=== PATIENT | female | born 1935 | race Caucasian/White ===

== ENCOUNTER 2017-06-17 10:40 | Day surgery (SDC) | payer BC ==
[2017-06-12 11:04] VITALS: BMI 32.0
[2017-06-17] MEDS ORDERED: ONDANSETRON 4 MG/2 ML VIAL ONE (11:36)
[2017-06-17] MEDS ORDERED: DEXAMETHASONE SOD PHOSPHATE 4 MG/1 ML VIAL ONE (11:36)
[2017-06-17] MEDS ORDERED: MIDAZOLAM HCL 2 MG/2 ML SINGLE DOSE VIAL ONE (11:37)
[2017-06-17] MEDS ORDERED: PROPOFOL 20 ML ONE (11:55)
[2017-06-17 12:57] VITALS: PULSE 65
[2017-06-17 13:42] VITALS: BP 110/56; TEMP 96
[2017-06-17] MEDS ORDERED: oxyCODONE HCL 5 MG TABLET PO PRN (13:42)
[2017-06-17] MEDS ORDERED: ACETAMINOPHEN 325 MG TABLET (FP) PO PRN (13:42)
[2017-06-17] MEDS ORDERED: ONDANSETRON 4 MG/2 ML VIAL IVPUSH PRN (13:42)
[2017-06-17] MEDS ORDERED: LACTATED RINGERS SOLUTION 1,000 ML IV SCH (13:45)
--- NOTE | 2017-06-19 08:42 | OP ---
DATE OF OPERATION: 06/17/2017 PREOPERATIVE DIAGNOSIS: Left carpal tunnel syndrome. POSTOPERATIVE DIAGNOSIS: Left carpal tunnel syndrome. OPERATIVE PROCEDURE: Left carpal tunnel release. SURGEON: Damien Booth MD ANESTHESIA: Local with sedation COMPLICATIONS: None. ESTIMATED BLOOD LOSS: Minimal. INDICATIONS FOR PROCEDURE: The patient is an 82-year-old female with the above findings, indicated for operative treatment. The risks, benefits, and alternatives were discussed with the patient at length, and proper informed consent was obtained. PROCEDURE: After proper identification of the patient and the correct operative site, the patient was brought to the operating room and placed supine on the operating table, all prominences were well padded. Sedation was given by the anesthesiologist, local anesthesia was given with 2% lidocaine. Left upper extremity was prepped and draped in the usual sterile fashion. Well-padded tourniquet was placed with a sterile prep. Esmarch bandage to exsanguinate the left upper extremity. Tourniquet was inflated to 250 mmHg. A longitudinal incision was made over the proximal aspect of the palm. Incision was taken sharply through the skin with blunt and sharp dissection through subcutaneous tissues. Palmar fascia was divided longitudinally. The transverse carpal ligament was divided longitudinally along with the distal 4 cm of antebrachial fascia under direct visualization with loupe magnification. This provided complete release of the median nerve at the wrist. Wound was irrigated with saline and repaired with 5-0 nylon suture. Sterile dressings were applied. The patient was reversed from sedation and brought to the recovery room in stable condition. She tolerated the procedure well. Joelle MCDERMOTT/[id number]
== END 2017-06-17 13:43 | disposition home or self-care (01) ==
LOC: FASU 10:40
PROVIDERS: ATTEND Orthopaedic Surgery Hand Surgery
PROC: 01N50ZZ Release Median Nerve, Open Approach (ICD-10-PCS; principal; 2017-06-17 12:09)
DX: G56.02 Carpal tunnel syndrome, left upper limb (principal)

== ENCOUNTER 2017-12-01 06:56 | Day surgery (SDC) | payer BC, OTHER ==
[2017-11-30 15:17] VITALS: BMI 32.9
[2017-12-01] MEDS ORDERED: PROPOFOL 20 ML ONE ×2 (08:16)
[2017-12-01] MEDS ORDERED: LIDOCAINE HCL 2% (20ML MULTI-DOSE VIAL) NR ONE (08:16)
[2017-12-01 09:11] VITALS: TEMP 98.1
--- NOTE | 2017-12-01 09:14 | PROC ---
Endoscopy Procedure Endoscopy procedure completed. Please see scanned procedure report.
[2017-12-01 09:51] VITALS: BP 121/51; PULSE 68
--- NOTE | 2017-12-02 13:05 | PATH ---
Surgical Pathology Report Patient Name: MARIE ROBLES [facility]. Rec. #: [id number] /Age/Gender: 1935 (Age: 82) / F Account: [id number] Location: U-ENDOSCOPY Taken: 12/01/2017 Received: 12/01/2017 Reported: 12/02/2017 Physicians: Otto Carmona M.D. Specimen(s) Received A: BX DUODENUM SECOND PORTION B: BX ANTRUM AND BODY C: RECTAL POLYP BIOPSY Clinical History Preoperative diagnosis: Anemia Postoperative diagnosis: Esophagitis, mild gastritis, rectal polyp, diverticulosis Final Diagnosis A. DUODENUM, SECOND PORTION, BIOPSY: DUODENAL MUCOSA WITH NO PATHOLOGIC CHANGES. NO HISTOLOGIC EVIDENCE OF GLUTEN SENSITIVE ENTEROPATHY (CELIAC SPRUE) IDENTIFIED. B. STOMACH, ANTRUM/BODY, BIOPSY: GASTRIC FUNDIC MUCOSA WITH FOCAL MILD CHRONIC GASTRITIS. IMMUNOSTAIN FOR H. PYLORI IS NEGATIVE. C. COLON, RECTUM, BIOPSY: HYPERPLASTIC POLYP. Electronically Signed Myke Henderson M.D. Gross Description A. Received in formalin, labeled "biopsy second portion of duodenum" are 2 monique, irregular portions of soft tissue measuring 0.1 and 0.2 cm. in greatest dimension. The specimens are submitted in toto in one cassette. B. Received in formalin, labeled "biopsy antrum/body" are 3 monique, irregular portions of soft tissue ranging from 0.1-0.3 cm. in greatest dimension. The specimens are submitted in toto in one cassette. C. Received in formalin, labeled "biopsy rectal polyp" is a monique, irregular portion of soft tissue measuring 0.3 cm. in greatest dimension. The specimen is submitted in toto in one cassette. 12/01/2017 [facility]12/01/2017
== END 2017-12-01 09:53 | disposition home or self-care (01) ==
LOC: JASU-ENDO 06:56
PROVIDERS: ATTEND Internal Medicine Gastroenterology
PROC: 0DB98ZX Excision of Duodenum, Via Natural or Artificial Opening Endoscopic, Diagnostic (ICD-10-PCS; 2017-12-01)
PROC: 0DB68ZX Excision of Stomach, Via Natural or Artificial Opening Endoscopic, Diagnostic (ICD-10-PCS; 2017-12-01)
PROC: 0DBP8ZX Excision of Rectum, Via Natural or Artificial Opening Endoscopic, Diagnostic (ICD-10-PCS; principal; 2017-12-01 08:00)
DX: Z12.11 Encounter for screening for malignant neoplasm of colon (principal); D64.9 Anemia, unspecified; K57.30 Diverticulosis of large intestine without perforation or abscess without bleeding
CPT/HCPCS: 82962; 88305-TC; 88342-TC

== ENCOUNTER 2018-12-14 07:59 | Day surgery (SDC) | payer BC, OTHER ==
[2018-12-03 10:22] VITALS: BMI 34.2
[2018-12-14] MEDS ORDERED: ACETAMINOPHEN 325 MG TABLET (FP) PO ONE (12:30)
[2018-12-14] MEDS ORDERED: ACETAMINOPHEN 325 MG TABLET (FP) ONE (12:31)
[2018-12-14 15:07] VITALS: BP 138/65; PULSE 80; TEMP 98
--- NOTE | 2018-12-16 14:25 | PATH ---
Surgical Pathology Report Patient Name: MARIE ROBLES [facility]. Rec. #: [id number] /Age/Gender: 1935 (Age: 83) / F Account: [id number] Location: RADIOLOGY INTER Taken: 12/14/2018 Received: 12/14/2018 Reported: 12/16/2018 Physicians: Joelle Mcmahon M.D. Specimen(s) Received LUNG, LEFT Clinical History 83-year-old female with large left upper lobe mass and left adrenal gland mass Final Diagnosis Lung, left, CT guided core biopsy: Adenocarcinoma, acinar and micropapillary patterns. SEE Comment. Comment: Immunohistochemical stains performed and interpreted at [facility] show the tumor is positive for AE1/3, CK7 and TTF-1, focally positive for p63, while negative for CK20. Additional immunohistochemical stains performed at [place], [place] ([id number]) and interpreted at [facility] show the tumor is positive for Napsin A, while rare cells are positive for p40. Overall histomorphology and immunophenotype is consistent with primary lung origin. History of large lung mass and left adrenal gland mass are noted. Findings relayed to Kathy from Dr. Calles's office. Electronically Signed Ivonne Rodriguez M.D. Gross Description Received in formalin labeled "left lung," is a 0.7 x 0.5 x 0.1 cm aggregate of monique soft tissue fragments. The formalin is filtered and the specimen is entirely submitted in one cassette. /12/14/201812/14/2018
== END 2018-12-14 15:14 | disposition home or self-care (01) ==
LOC: JRADIR 07:59
PROVIDERS: ATTEND Internal Medicine
PROC: 0BBG3ZX Excision of Left Upper Lung Lobe, Percutaneous Approach, Diagnostic (ICD-10-PCS; principal; 2018-12-14)
DX: C34.12 Malignant neoplasm of upper lobe, left bronchus or lung (principal)
CPT/HCPCS: 32405; 71046-TC-FY; 77012-TC; 88305-TC; 88341-TC; 88342-TC

== ENCOUNTER 2019-01-27 09:49 | Day surgery (SDC) | payer BC, OTHER ==
[2019-01-26 11:20] VITALS: BMI 34.2
[2019-01-27 10:37] LABS: BASO % 0.6 % (0-2.0); EOS % 2.4 % (0-4.5); HEMATOCRIT 34.6 % (32.4-45.2); HEMOGLOBIN 11.3 GM/dL (10.7-15.3); LYMPH % 20.1 % (8-40); MCH 26.9 pg (25.7-33.7); MCHC 32.5 g/dl (32.0-36.0); MEAN CELL VOLUME 82.8 fl (80-96); MEAN PLT VOLUME 7.9 fl (7.5-11.1); MONO % 4.8 % (3.8-10.2); NEUT % 72.1 % (42.8-82.8); PLATELET COUNT 387 K/MM3 (134-434); RBC 4.18 M/mm3 (3.60-5.2); RDW 14.1 % (11.6-15.6); WHITE BLOOD COUNT 11.7 K/mm3 (4.0-10.0)
[2019-01-27 11:34] LABS: INR 1.08 (0.83-1.09); PROTHROMBIN TIME (PATIENT) 12.7 SEC (9.7-13.0)
[2019-01-27 14:03] VITALS: TEMP 98
[2019-01-27 15:13] VITALS: BP 118/53; PULSE 78
--- NOTE | 2019-01-28 15:11 | PATH ---
Surgical Pathology Report Patient Name: MARIE ROBLES [facility]. Rec. #: [id number] /Age/Gender: 1935 (Age: 83) / F Account: [id number] Location: RADIOLOGY INTER Taken: 01/27/2019 Received: 01/27/2019 Reported: 01/28/2019 Physicians: Jim Reynoso M.D. Kalia Verdugo M.D. Specimen(s) Received ADRENAL BIOPSY CORE Clinical History 83-year-old female with lung cancer and left adrenal enlargement, rule out metastatic disease Final Diagnosis LEFT ADRENAL GLAND, NEEDLE CORE BIOPSY: METASTATIC PULMONARY ADENOCARCINOMA. Comment: Immunohistochemical stains performed and interpreted at [facility] show the following results: The neoplastic cells stain with CK7 and TTF-1, with rare cells staining with CK20. See also prior biopsy [id number]. This case was discussed with Dr. Verdugo on January 28, 2019. Electronically Signed Myke Henderson M.D. Gross Description Received in formalin labeled "left adrenal biopsy," are 3 monique, cylindrical portions of soft tissue ranging from 0.3-0.9 cm in length and averaging 0.1 cm in diameter. The specimens are submitted in toto in one cassette. /01/27/201901/27/2019
== END 2019-01-27 14:55 | disposition home or self-care (01) ==
LOC: JRADIR 09:49
PROVIDERS: ATTEND Internal Medicine Hematology & Oncology
PROC: 0GB23ZX Excision of Left Adrenal Gland, Percutaneous Approach, Diagnostic (ICD-10-PCS; principal; 2019-01-27)
DX: C79.72 Secondary malignant neoplasm of left adrenal gland (principal); C34.90 Malignant neoplasm of unspecified part of unspecified bronchus or lung
CPT/HCPCS: 36415; 49180; 82962; 85025; 85610; 87899; 88305-TC; 88341-TC; 88342-TC

== ENCOUNTER 2020-06-12 05:34 | Day surgery (SDC) | payer BC, OTHER ==
[2020-06-08 14:55] VITALS: BMI 31.2
[2020-06-12 08:09] LABS: BASO % 0.9 % (0-2.0); EOS % 5.1 % (0-4.5); HEMATOCRIT 34.1 % (32.4-45.2); HEMOGLOBIN 10.9 GM/dL (10.7-15.3); MCH 27.7 pg (25.7-33.7); MCHC 31.9 g/dl (32.0-36.0); MEAN CELL VOLUME 86.9 fl (80-96); MEAN PLT VOLUME 7.6 fl (7.5-11.1); MONO % 7.2 % (3.8-10.2); NEUT % 62.8 % (42.8-82.8); PLATELET COUNT 349 K/MM3 (134-434); RBC 3.93 M/mm3 (3.60-5.2); RDW 14.1 % (11.6-15.6); WHITE BLOOD COUNT 8.8 K/mm3 (4.0-10.0)
[2020-06-12 08:24] LABS: INR 1.06 (0.83-1.09); PROTHROMBIN TIME (PATIENT) 12.5 SEC (9.7-13.0)
[2020-06-12] MEDS ORDERED: ACETAMINOPHEN 325 MG TABLET (FP) ONE (11:50)
[2020-06-12] MEDS ORDERED: ACETAMINOPHEN 325 MG TABLET (FP) PO ONE (11:50)
[2020-06-12 13:15] VITALS: BP 126/64; PULSE 68; TEMP 97
--- NOTE | 2020-06-14 14:42 | PATH ---
Surgical Pathology Report Patient Name: MARIE ROBLES [facility]. Rec. #: [id number] /Age/Gender: 1935 (Age: 85) / F Account: [id number] Location: RADIOLOGY INTER Taken: 06/12/2020 Received: 06/12/2020 Reported: 06/14/2020 Physicians: Joelle Mcmahon M.D. Specimen(s) Received LEFT UPPER LOBE LUNG BIOPSY Clinical History 85 year old female with history lung cancer and adrenal mets now with left upper lobe mass Final Diagnosis LUNG, LEFT, UPPER LOBE, CT GUIDED CORE BIOPSY: ADENOCARCINOMA, MODERATELY DIFFERENTIATED. SEE COMMENT. Comment: Histologic sections show lepidic and acinar patterns. Immunohistochemical stains performed and interpreted at [facility] show the tumor is positive for AE1/3, CK7, and TTF-1. [facility] [place] [place] ([id number]) and interpreted at [facility] show the tumor is positive for Napsin-A, while p40 shows rare isolated positive staining. Overall, findings are consistent with an adenocarcinoma of lung origin. Case discussed with Dr. Verdugo, 06/13/20. Prior materials are noted. Molecular studies (Omniseq) pending, findings will be reported separately. Positive and negative controls (internal if applicable) show appropriate results. Electronically Signed Ivonne Rodriguez M.D. Gross Description Received in formalin labeled "left lung biopsy," are 6 monique, cylindrical portions of soft tissue ranging from 0.3-0.8 cm in length and averaging 0.1 cm in diameter. The specimens are submitted in toto in one cassette. /06/12/2020 saudi06/12/2020
== END 2020-06-12 14:35 | disposition home or self-care (01) ==
LOC: JRADIR 05:34
PROVIDERS: ATTEND Internal Medicine Hematology & Oncology
PROC: 0BBG3ZX Excision of Left Upper Lung Lobe, Percutaneous Approach, Diagnostic (ICD-10-PCS; principal; 2020-06-12)
DX: C34.12 Malignant neoplasm of upper lobe, left bronchus or lung (principal); C79.70 Secondary malignant neoplasm of unspecified adrenal gland
CPT/HCPCS: 32405; 36415; 71045-TC-FY; 77012-TC; 85025; 85610; 88305-TC; 88341-TC; 88342-TC

== ENCOUNTER 2020-06-14 10:29 | Inpatient (IN) | payer BC, OTHER ==
--- NOTE | 2020-06-14 11:44 | PDOC ---
History of Present Illness - General Chief Complaint: Shortness of Breath Stated Complaint: CHEST TUBE Time Seen by Provider: 06/14/20 11:34 - History of Present Illness Initial Comments: Margo Edwards is an 85yo woman with a PMH of lung CA (sees Dr Verdugo, on chemo) HTN, HLD, DM2, hypothyroidism, Bipolar I, GERD who presents with a known left- sided pneumothorax. She had a biopsy of the lung cancer on 06/12/20 with a small apical pneumothorax noted on xray following the biopsy. Today, she came in for a follow up xray; the pneumo was noted to have increased in size. Her doctor arranged for her to have a pigtail placed with IR today and told her to come to the ED for admission. Ms Edwards reports some mild shortness of breath but otherwise has no complaints today. Past History - Medical History Allergies/Adverse Reactions: Allergies Allergy/AdvReac Type Severity Reaction Status Date / Time No Known Allergies Allergy Verified 06/14/20 10:37 Home Medications: Ambulatory Orders Alprazolam [Xanax] 0.5 mg PO DAILY PRN 06/12/17 Aripiprazole 7 mg PO DAILY 06/12/17 Glipizide/Metformin HCl [Glipizide-Metformin 5-500 mg] 1 each PO BID 06/12/17 Irbesartan 75 mg PO DAILY 06/12/17 Lamotrigine [Lamictal] 100 mg PO DAILY 06/12/17 Levothyroxine [Synthroid -] 50 mcg PO DAILY 06/12/17 Sertraline HCl [Zoloft] 100 mg PO DAILY 06/12/17 Simvastatin 20 mg PO HS 06/12/17 Insulin Glargine,Hum.rec.anlog [Lantus] 28 unit SQ DAILY 11/30/17 Insulin Lispro [Humalog Nicholas Kwikpen] 100 unit SQ PRN 11/30/17 Liraglutide [Victoza -] 1.2 mg SQ DAILY@0700 11/30/17 Famotidine [Pepcid] 40 mg PO DAILY 06/08/20 ERLOTINIB HCl [Tarceva (Nf) -] 25 mg PO DAILY 06/14/20 Potassium Chloride 10 meq PO DAILY 06/14/20 Anemia: Yes Asthma: No Cancer: Yes (LEFT LUNG) Cardiac Disorders: No CVA: No COPD: No CHF: No Dementia: No Diabetes: Yes (OVER 15 YEARS) GI Disorders: Yes (GERD) Disorders: No HTN: Yes Hypercholesterolemia: Yes Liver Disease: No Seizures: No Thyroid Disease: Yes (HYPOTHYROIDISM) - Surgical History Abdominal Surgery: No Appendectomy: No Cardiac Surgery: No Cholecystectomy: No Lung Surgery: No Neurologic Surgery: No Orthopedic Surgery: Yes (RIGHT AND LEFT TKR, LAST OVER 10 YEARS AGO) - Reproductive History Is Patient Now?: No - Psycho-Social/Smoking History Smoking History: Never smoked Have you smoked in the past 12 months: No If you are a former smoker, when did you quit?: OVER 25 YEARS AGO Information on smoking cessation initiated: No - Substance Abuse Hx (Audit-C & DAST Scrn) How often the patient has a drink containing alcohol: Never Score: In Men: 4 or > Positive; In Women: 3 or > Positive: 0 Screen Result (Pos requires Nsg. Audit-10AR): Negative In the last yr the pt used illegal drug/Rx for NonMed reason: No Score: Yes response is considered Positive: 0 Screen Result (Positive result requires Nsg. DAST-10): Negative Review of Systems - Review of Systems Comments:: General: No fevers, no chills, no weight or appetite change, no malaise HEENT: No changes in vision, no changes in hearing, no congestion, no sore throat CV: No chest pain, no palpitations, no LE edema Pulm: See HPI GI: No nausea or vomiting, no change in bowel habits, no melena : No frequency, no urgency, no dysuria Musc: No back pain, no joint swelling, no recent injury Skin: No rash, no lesions, no erythema Endo: No excessive thirst, no heat/cold intolerance Heme: No unusual bruising or bleeding, no swollen glands Neuro: No syncope, no numbness/tingling, no focal weakness Vasc: No claudication Psych: No recent change in mood, no SI or HI *Physical Exam - Vital Signs Last Vital Signs Temp Pulse Resp BP Pulse Ox 98.6 F 65 19 141/49 L 99 06/14/20 10:32 06/14/20 10:32 06/14/20 10:32 06/14/20 10:32 06/14/20 10:32 - Physical Exam General: Comfortable, no acute distress HEENT: Atraumatic, PERRL, EOMI, MMM, voice normal, hard of hearing, normal neck ROM Cards: RRR, no murmur appreciated Pulm: Comfortable on O2 by NC. Diminished breath sounds in left apical lung Abd: Soft, nontender, nondistended Ext: Atraumatic. No LE edema. ROM intact. WWP Skin: Normal color, no rashes or lesions Neuro: A&Ox3, CN grossly intact, normal speech, motor/sensory grossly intact and symmetric Psych: Mood appropriate to situation ED Treatment Course - LABORATORY CBC & Chemistry Diagram: 06/14/20 12:15 06/14/20 12:15 Medical Decision Making - Medical Decision Making 06/14/20 11:44 Margo Edwards is an 85yo woman with a PMH of lung CA (sees Dr Verdugo, on chemo) HTN, HLD, DM2, hypothyroidism, Bipolar I, GERD who presents with an enlarging left apical pneumothorax after a lung biopsy on 06/12/20. She was told to present to the ED for admission to the hospital for planned intervention with IR today. - CXR completed this morning, enlarging left apical pneumothorax noted - CBC, CMP, EKG for admission - Dr Guzman aware - Call to PMD, Dr Calles, for admission 06/14/20 13:11 - Labs without concerning abnormalities - EKG with NSR, HR 63, normal interval, no t-wave or ST changes - Spoke to Dr Verdugo; pt may take home chemo daily while at the hospital - Return call to Dr Calles for admission now that labs are available - Per pt's family and Dr Guzman, will be going to IR for CT placement this afternoon 06/14/20 13:38 - Sign out given to Dr Calles; spoke to Dr Pollard. Will admit for further management. Discussed with Dr Atul Ram PGY3 Discharge - Discharge Information Problems reviewed: Yes Clinical Impression/Diagnosis: Pneumothorax after biopsy Condition: Fair - Admission Yes - Follow up/Referral Referrals: Lena Calles MD [Primary Care Provider] - - Patient Discharge Instructions - Post Discharge Activity
[2020-06-14 12:30] LABS: BASO % 0.8 % (0-2.0); EOS % 4.7 % (0-4.5); HEMATOCRIT 33.1 % (32.4-45.2); HEMOGLOBIN 10.8 GM/dL (10.7-15.3); LYMPH % 26.7 % (8-40); MCH 28.1 pg (25.7-33.7); MCHC 32.5 g/dl (32.0-36.0); MEAN CELL VOLUME 86.5 fl (80-96); MEAN PLT VOLUME 7.8 fl (7.5-11.1); MONO % 6.3 % (3.8-10.2); NEUT % 61.5 % (42.8-82.8); PLATELET COUNT 325 K/MM3 (134-434); RBC 3.82 M/mm3 (3.60-5.2); RDW 14.2 % (11.6-15.6); WHITE BLOOD COUNT 9.1 K/mm3 (4.0-10.0)
[2020-06-14 12:56] LABS: ALBUMIN 3.5 g/dl (3.4-5.0); BILIRUBIN,TOTAL 0.3 mg/dL (0.2-1); BLOOD UREA NITROGEN 24.4 mg/dL (7-18); CALCIUM 9.6 mg/dL (8.5-10.1); CREATININE 1.1 mg/dL (0.55-1.3); TOT PROT 7.4 g/dl (6.4-8.2)
--- NOTE | 2020-06-14 14:36 | PDOC ---
Documentation entered by Redd Tran SCRIBE, acting as scribe for Ailyn Pollard MD. Ailyn Pollard MD: This documentation has been prepared by the Chelsea vaz Xhesika, SCRIBE, under my direction and personally reviewed by me in its entirety. I confirm that the documentation accurately reflects all work, treatment, procedures, and medical decision making performed by me. Attending Attestation - Resident Resident Name: Che Ram - ED Attending Attestation I have performed the following: I have examined & evaluated the patient, The case was reviewed & discussed with the resident, I agree w/resident's findings & plan, Exceptions are as noted - HPI HPI: 06/14/20 11:39 The patient is a 85y/o F with a pmh of lung CA (sees Dr Verdugo, on chemo) HTN, HLD, DM2, hypothyroidism, Bipolar I, GERD who presents to the ED sent by Dr. Begum for admission for L sided pneumothorax on CXR. Pt states she had a biopsy of the lung (06/12/20) with a small apical pneumothorax noted on xray following the biopsy. Pt is currently complaining for SOB. Allergies: NKDA PCP: Lena Gibson Hem/Onc: Dr. Verdugo - Physicial Exam PE: 06/14/20 12:08 General: well appearing Chest: decreased BS on L compared to R, normal rr, speaking in full sentences, no accessory muscle use CVS: + s1 s2, RRR - Medical Decision Making 06/14/20 12:09 85 yo F with PTX s/p lung biopsy, xray from today expanding PTX, no resp distress. Plan: -labs -supplemental O2 -IR consulted for chest tube placement (biopsy performed by IR) -admit This clinical encounter is taking place during a federal and state health care emergency attributable to the novel [place] Virus pandemic. The [place] Administrator of the Department of Health and Human Services has declared, pursuant to the Public Health Service Act 319F-3 (42 U.S.C. 247d-6d), that a covered persons activities related to medical countermeasures against COVID-19 will be immune from liability under Federal and State law. Heart Score/ECG Review - ECG Impressions Comment:: 06/14/20 12:11 sinus, rate 63, no ST elevations Discharge - Discharge Information Problems reviewed: Yes Clinical Impression/Diagnosis: Pneumothorax after biopsy Condition: Fair - Follow up/Referral - Patient Discharge Instructions - Post Discharge Activity
--- NOTE | 2020-06-14 16:34 | CON.PULM ---
Consult Consult Specialty:: PULM/CCM Referred by:: ER Reason for Consultation:: PTX - History of Present Illness Chief Complaint: PTX History of Present Illness: 85 F, known Left lung Adenocarcinoma (acinar & micropapillary), HTN, HLD, DM, hypothyroidism, Bipolar I, and GERD. S/P CT guided Left lung mass biopsy on 06/12/2020. Developed a small Left Apical PTX. Admitted via the ER due to enlarging left PTX on follow up CXR. Patient had a left pleural catheter inserted by IR with significant improvement in the PTX. CXR: Significant improvement in Left PTX / LLL atelectasis / minimal effusion Intake & Output 06/11/20 06/12/20 06/13/20 06/14/20 23:59 23:59 23:59 23:59 Weight 175 lb Last Vital Signs Temp Pulse Resp BP Pulse Ox 98.6 F 67 18 137/64 100 06/14/20 10:32 06/14/20 14:18 06/14/20 14:18 06/14/20 14:18 06/14/20 14:18 Active Medications Non-Formulary Medication (Erlotinib Hcl) 25 mg PO TID RAGINI General: Awake and alert, NAD HEENT: (-) Pallor Cards: RRR, no murmur appreciated Pulm: Comfortable on O2 by NC. Diminished breath sounds in left apical lung Abd: Soft, nontender, nondistended Ext: Atraumatic. No LE edema. ROM intact. WWP Skin: Normal color, no rashes or lesions Neuro: Non-focal Laboratory Results - last 24 hr 06/14/20 06/14/20 12:15 12:15 WBC 9.1 RBC 3.82 Hgb 10.8 Hct 33.1 MCV 86.5 MCH 28.1 MCHC 32.5 RDW 14.2 Plt Count 325 MPV 7.8 Absolute Neuts (auto) 5.6 Neutrophils % 61.5 Lymphocytes % 26.7 Monocytes % 6.3 Eosinophils % 4.7 H Basophils % 0.8 Nucleated RBC % 0 Sodium 137 Potassium 5.0 Chloride 105 Carbon Dioxide 27 Anion Gap 5 L BUN 24.4 H Creatinine 1.1 Est GFR (CKD-EPI)AfAm 52.65 Est GFR (CKD-EPI)NonAf 45.42 Random Glucose 167 H Calcium 9.6 Total Bilirubin 0.3 AST 14 L ALT 22 Alkaline Phosphatase 108 Total Protein 7.4 Albumin 3.5 IMP: PTX S/P CT guided biopsy S/P left pleural catheter insertion with significant improvement in left PTX Left lung Adenocarcinoma (acinar & micropapillary) HTN HLD DM Hypothyroidism Bipolar I GERD Pleural catheter to suction Supplemental O2 as needed Follow CXR Incentive Spirometry VTE prophylaxis Will follow Thank you. Dr Guzman - History Source History Provided By: Patient, Family Member Limitations to Obtaining History: No Limitations - Past Medical History Pulmonary: Yes: Bronchitis, Cancer, Pneumonia ...: No - Alcohol/Substance Use Hx Alcohol Use: No - Smoking History Smoking history: Never smoked Have you smoked in the past 12 months: No If you are a former smoker, when did you quit?: OVER 25 YEARS AGO Home Medications - Allergies Allergies/Adverse Reactions: Allergies Allergy/AdvReac Type Severity Reaction Status Date / Time No Known Allergies Allergy Verified 06/14/20 10:37 - Home Medications Home Medications: Ambulatory Orders Alprazolam [Xanax] 0.5 mg PO DAILY PRN 06/12/17 Aripiprazole 7 mg PO DAILY 06/12/17 Glipizide/Metformin HCl [Glipizide-Metformin 5-500 mg] 1 each PO BID 06/12/17 Irbesartan 75 mg PO DAILY 06/12/17 Lamotrigine [Lamictal] 100 mg PO DAILY 06/12/17 Levothyroxine [Synthroid -] 50 mcg PO DAILY 06/12/17 Sertraline HCl [Zoloft] 100 mg PO DAILY 06/12/17 Simvastatin 20 mg PO HS 06/12/17 Insulin Glargine,Hum.rec.anlog [Lantus] 28 unit SQ DAILY 11/30/17 Insulin Lispro [Humalog Nicholas Kwikpen] 100 unit SQ PRN 11/30/17 Liraglutide [Victoza -] 1.2 mg SQ DAILY@0700 11/30/17 Famotidine [Pepcid] 40 mg PO DAILY 06/08/20 ERLOTINIB HCl [Tarceva (Nf) -] 25 mg PO DAILY 06/14/20 Potassium Chloride 10 meq PO DAILY 06/14/20 Physical Exam Vital Sings: Vital Signs Temperature 98.6 F 06/14/20 10:32 Pulse Rate 67 06/14/20 14:18 Respiratory Rate 18 06/14/20 14:18 Blood Pressure 137/64 06/14/20 14:18 O2 Sat by Pulse Oximetry (%) 100 06/14/20 14:18 Labs: CBC, BMP 06/14/20 12:15 06/14/20 12:15
--- NOTE | 2020-06-14 16:45 | EKG ---
Test Reason : Blood Pressure : / mmHG Vent. Rate : 063 BPM Atrial Rate : 063 BPM P-R Int : 208 ms QRS Dur : 072 ms QT Int : 422 ms P-R-T Axes : 052 006 050 degrees QTc Int : 431 ms NORMAL SINUS RHYTHM POSSIBLE ANTEROSEPTAL INFARCT , AGE UNDETERMINED ABNORMAL ECG NO PREVIOUS ECGS AVAILABLE Confirmed by ESPINOZA DOBBINS MD ([id number]) on 06/14/2020 4:44:26 PM Referred By: Confirmed By:ESPINOZA DOBBINS MD
[2020-06-14 16:48] VITALS: BMI 34.4
--- NOTE | 2020-06-14 17:53 | CON.HO ---
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 There was concern for progression of disease therefore patient was scheduled for lung biopsy on 06/12. She was referred to ER when follow up CXR found enlarging left lung PTX. Received a L pleural catheter with IR today. Oncology consulted as patient is known to our service. - Past Medical History Pulmonary: Yes: Bronchitis, Cancer, Pneumonia ...: No - Alcohol/Substance Use Hx Alcohol Use: No - Smoking History Smoking history: Never smoked Have you smoked in the past 12 months: No If you are a former smoker, when did you quit?: OVER 25 YEARS AGO Home Medications - Allergies Allergies/Adverse Reactions: Allergies Allergy/AdvReac Type Severity Reaction Status Date / Time No Known Allergies Allergy Verified 06/14/20 10:37 - Home Medications Home Medications: Ambulatory Orders Alprazolam [Xanax] 0.5 mg PO DAILY PRN 06/12/17 Aripiprazole 7 mg PO DAILY 06/12/17 Glipizide/Metformin HCl [Glipizide-Metformin 5-500 mg] 1 each PO BID 06/12/17 Irbesartan 75 mg PO DAILY 06/12/17 Lamotrigine [Lamictal] 100 mg PO DAILY 06/12/17 Levothyroxine [Synthroid -] 50 mcg PO DAILY 06/12/17 Sertraline HCl [Zoloft] 100 mg PO DAILY 06/12/17 Simvastatin 20 mg PO HS 06/12/17 Insulin Glargine,Hum.rec.anlog [Lantus] 28 unit SQ DAILY 11/30/17 Insulin Lispro [Humalog Nicholas Kwikpen] 100 unit SQ PRN 11/30/17 Liraglutide [Victoza -] 1.2 mg SQ DAILY@0700 11/30/17 Famotidine [Pepcid] 40 mg PO DAILY 06/08/20 ERLOTINIB HCl [Tarceva (Nf) -] 25 mg PO TID 06/14/20 Potassium Chloride 10 meq PO DAILY 06/14/20 Review of Systems - Review of Systems Constitutional: reports: No Symptoms Eyes: reports: No Symptoms HENT: reports: No Symptoms Neck: reports: No Symptoms Cardiovascular: reports: No Symptoms, Chest Pain Respiratory: reports: No Symptoms, SOB Gastrointestinal: reports: No Symptoms Genitourinary: reports: No Symptoms Musculoskeletal: reports: No Symptoms Integumentary: reports: No Symptoms Neurological: reports: No Symptoms Physical Exam Vital Signs: Vital Signs Temperature 97.8 F 06/14/20 16:41 Pulse Rate 60 06/14/20 16:41 Respiratory Rate 20 06/14/20 16:41 Blood Pressure 134/54 L 06/14/20 16:41 O2 Sat by Pulse Oximetry (%) 100 06/14/20 16:52 Constitutional: Yes: No Distress, Calm Eyes: Yes: WNL, Conjunctiva Clear HENT: Yes: Atraumatic, Normocephalic Neck: Yes: Supple Cardiovascular: Yes: Regular Rate and Rhythm Respiratory: Yes: Other (left chest tube in place) Gastrointestinal: Yes: WNL Musculoskeletal: Yes: WNL Extremities: Yes: WNL Labs: CBC, BMP 06/14/20 12:15 06/14/20 12:15 Assessment/Plan 85y F with EGFR mutated metastatic Lung adeno (to adrenals) presents after scheduled lung biopsy c/b PTX requiring left pleural catheter placement with IR -recommend continuing oral chemo Erlotinib while in house (patient has her own medication with her) -close oncology follow up with Dr Verdugo on d/c
[2020-06-14] MEDS ORDERED: ARIPiprazole 2 MG TABLET PO SCH (18:15)
--- NOTE | 2020-06-14 18:31 | HP ---
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: Yes: Dementia Cardiovascular: Yes: HTN Pulmonary: Yes: Bronchitis, Cancer, Pneumonia ...: No Heme/Onc: Yes: Current Chemotherapy Endocrine: Yes: Diabetes Mellitus, Hypothyroidism - Smoking History Smoking history: Never smoked Have you smoked in the past 12 months: No If you are a former smoker, when did you quit?: OVER 25 YEARS AGO - Alcohol/Substance Use Hx Alcohol Use: No Home Medications - Allergies Allergies/Adverse Reactions: Allergies Allergy/AdvReac Type Severity Reaction Status Date / Time No Known Allergies Allergy Verified 06/14/20 10:37 - Home Medications Home Medications: Ambulatory Orders Alprazolam [Xanax] 0.5 mg PO DAILY PRN 06/12/17 Aripiprazole 7 mg PO DAILY 06/12/17 Glipizide/Metformin HCl [Glipizide-Metformin 5-500 mg] 1 each PO BID 06/12/17 Irbesartan 75 mg PO DAILY 06/12/17 Lamotrigine [Lamictal] 100 mg PO DAILY 06/12/17 Levothyroxine [Synthroid -] 50 mcg PO DAILY 06/12/17 Sertraline HCl [Zoloft] 100 mg PO DAILY 06/12/17 Simvastatin 20 mg PO HS 06/12/17 Insulin Glargine,Hum.rec.anlog [Lantus] 28 unit SQ DAILY 11/30/17 Insulin Lispro [Humalog Nicholas Kwikpen] 100 unit SQ PRN 11/30/17 Liraglutide [Victoza -] 1.2 mg SQ DAILY@0700 11/30/17 Famotidine [Pepcid] 40 mg PO DAILY 06/08/20 ERLOTINIB HCl [Tarceva (Nf) -] 25 mg PO TID 06/14/20 Potassium Chloride 10 meq PO DAILY 06/14/20 Review of Systems - Review of Systems Constitutional: reports: No Symptoms Eyes: reports: No Symptoms HENT: reports: No Symptoms Respiratory: denies: Cough Gastrointestinal: reports: Bloating, Other (loose stools). denies: Constipation, Dysphagia, Melena, Rectal Bleeding, Vomiting Blood Genitourinary: reports: Incontinence Breasts: reports: No Symptoms Reported Musculoskeletal: reports: No Symptoms Integumentary: reports: No Symptoms Neurological: reports: No Symptoms Endocrine: reports: No Symptoms Physical Examination Vital Signs: Vital Signs Temperature 97.8 F 06/14/20 16:41 Pulse Rate 60 06/14/20 16:41 Respiratory Rate 06/14/20 16:41 Blood Pressure 134/54 L 06/14/20 16:41 O2 Sat by Pulse Oximetry (%) 100 06/14/20 16:52 Labs: CBC, BMP 06/14/20 12:15 06/14/20 12:15 Problem List - Problems (1) Pneumothorax after biopsy Assessment/Plan: pig tail catheter in place for drainage, monitore serous liquid Code(s): J95.811 - POSTPROCEDURAL PNEUMOTHORAX (2) Lung cancer Assessment/Plan: continue Erlitinib Code(s): C34.90 - MALIGNANT NEOPLASM OF UNSP PART OF UNSP BRONCHUS OR LUNG (3) Diabetes mellitus type 2 in nonobese Assessment/Plan: continue Vctoza and LEvelir hold for now Glipizide and Glucophage Code(s): E11.9 - TYPE 2 DIABETES MELLITUS WITHOUT COMPLICATIONS
[2020-06-14] MEDS: lamoTRIgine 100 MG TABLET PO SCH (18:38)
[2020-06-14] MEDS: POTASSIUM CHLORIDE TABS 10 MEQ TABLET.ER (FP) PO SCH (18:38)
[2020-06-14] MEDS: SERTRALINE HCL 50 MG TABLET (FP) PO SCH (18:38)
[2020-06-14] MEDS: LOSARTAN POTASSIUM 25 MG TABLET PO SCH (18:38)
[2020-06-14] MEDS ORDERED: PT OWN MED DRAWER 7, Y5N ONE ×3 (20:56→23:56)
[2020-06-14] MEDS: ARIPIPRAZOLE 5 MG, ARIPIPRAZOLE 2 MG PO SCH (21:55)
[2020-06-14] MEDS: ATORVASTATIN CA 10 MG TABLET (FP) PO SCH (21:56)
[2020-06-14] MEDS ORDERED: FAMOTIDINE 10 MG TABLET PO ONE (22:01)
[2020-06-14] MEDS: ERLOTINIB HCL PO SCH (22:02)
[2020-06-14] MEDS: INSULIN (LEVEMIR) 100 UNITS/ML UNITS SQ SCH (22:03)
[2020-06-14] MEDS: INSULIN SLIDING SCALE (NOVOLOG) 1 VIAL SQ SCH (22:18)
[2020-06-15] MEDS: ACETAMINOPHEN 500 MG TABLET (FP) PO PRN ×2 (02:43→21:41)
[2020-06-15] MEDS ORDERED: INSULIN (NOVOLOG) ASPART 100 UNITS/ML 10ML VIAL ONE (06:37)
[2020-06-15] MEDS: ERLOTINIB HCL PO SCH ×3 (06:39→21:40)
[2020-06-15] MEDS: INSULIN SLIDING SCALE (NOVOLOG) 1 VIAL SQ SCH ×4 (06:39→21:43)
[2020-06-15] MEDS: LEVOTHYROXINE NA 50 MCG TABLET (FP) PO SCH (06:40)
[2020-06-15] MEDS ORDERED: PT OWN MED DRAWER 7, Y5N ONE ×5 (06:43→14:21)
[2020-06-15] MEDS: LIRAGLUTIDE 0.6 MG/0.1 ML PEN.INJCTR SQ SCH (06:44)
[2020-06-15] MEDS ORDERED: LIRAGLUTIDE 0.6 MG/0.1 ML PEN.INJCTR SQ SCH (07:00)
[2020-06-15 08:11] LABS: BASO % 0.9 % (0-2.0); EOS % 3.8 % (0-4.5); HEMATOCRIT 32.4 % (32.4-45.2); HEMOGLOBIN 10.4 GM/dL (10.7-15.3); LYMPH % 30.2 % (8-40); MCH 28.3 pg (25.7-33.7); MCHC 32.2 g/dl (32.0-36.0); MEAN CELL VOLUME 87.9 fl (80-96); MEAN PLT VOLUME 8.2 fl (7.5-11.1); MONO % 6.3 % (3.8-10.2); NEUT % 58.8 % (42.8-82.8); PLATELET COUNT 327 K/MM3 (134-434); RBC 3.68 M/mm3 (3.60-5.2); RDW 14.1 % (11.6-15.6); WHITE BLOOD COUNT 9.6 K/mm3 (4.0-10.0)
[2020-06-15] MEDS ORDERED: INSULIN (LEVEMIR) 100 UNITS/ML UNITS SQ SCH (10:00)
[2020-06-15] MEDS: POTASSIUM CHLORIDE TABS 10 MEQ TABLET.ER (FP) PO SCH (11:09)
[2020-06-15] MEDS: lamoTRIgine 100 MG TABLET PO SCH (11:09)
[2020-06-15] MEDS: SERTRALINE HCL 50 MG TABLET (FP) PO SCH (11:10)
[2020-06-15] MEDS: ALPRAZolam 0.25 MG TABLET PO PRN (11:10)
[2020-06-15] MEDS: ARIPIPRAZOLE 5 MG, ARIPIPRAZOLE 2 MG PO SCH (11:13)
[2020-06-15] MEDS: LOSARTAN POTASSIUM 25 MG TABLET PO SCH (11:15)
--- NOTE | 2020-06-15 12:37 | PN ---
Progress Note (short form) - Note Progress Note: PULMONARY APPEARS STABLE/OFFERS NO COMPLAINTS REQUESTING .5 MG XANAX(HOME MED) VSS/AFEBRILE General: Awake and alert, NAD HEENT: (-) Pallor Cards: RRR, no murmur appreciated Pulm: Comfortable on O2 by NC. Diminished breath sounds in left apical lung Abd: Soft, nontender, nondistended Ext: Atraumatic. No LE edema. ROM intact. WWP Skin: Normal color, no rashes or lesions Neuro: Non-focal CXR: SMALL LEFT APICAL PTX NOTED/LEFT PIGTAIL CATHER IN PLACE IMP: PTX S/P CT guided biopsy S/P left pleural catheter insertion with significant improvement in left PTX Left lung Adenocarcinoma (acinar & micropapillary) HTN HLD DM Hypothyroidism Bipolar I GERD Pleural catheter to suction to continue/repeat CXR AM Supplemental O2 as needed Incentive Spirometry VTE prophylaxis Will follow Maik HAY MD
--- NOTE | 2020-06-15 14:37 | PN.HO ---
Progress Note (short form) - Note Progress Note: Patient seen and examined at bedside, feels well and offers no new complaints Physical Exam: General: in NAD, A&Ox3 HEENT: NCAT, PERRL, anicteric sclera, mmm Neck: supple CVS: S1, S2, no m/r/g Resp: CTA: left chest tube in place Abd: +BS, soft, nt, no pain on palpation Ext; no ll edema A/P 85y F with metastatic EGFR lung adeno with POD p/w PTX after lung biopsy -s/p L chest tube placement -upon d/c; close follow up primary oncologist -to continue Erlotinib in house
--- NOTE | 2020-06-15 19:07 | PN ---
Progress Note, Physician Chief Complaint: patient with pneumothorax stable after pigtail catheter insertion History of Present Illness: 85 yo female with PMH of left lung cancer developed pneumothorax after lung biopsy. SHe had a pigtail catheter inserted in the left hemithorax and tolerated the procedure well. - Current Medication List Current Medications: Active Medications Acetaminophen (Tylenol -) 500 mg PO Q6H PRN PRN Reason: FOR CHEST PAIN Last Admin: 06/15/20 02:43 Dose: 500 mg Documented by: Alprazolam (Xanax -) 0.5 mg PO BID PRN PRN Reason: ANXIETY Last Admin: 06/15/20 11:10 Dose: 0.5 mg Documented by: Aripiprazole 5 mg/ (Aripiprazole 2 mg) 7 mg PO DAILY [facility] Last Admin: 06/15/20 11:13 Dose: 7 mg Documented by: Atorvastatin Calcium (Lipitor -) 10 mg PO HS [facility] Last Admin: 06/14/20 21:56 Dose: 10 mg Documented by: Insulin Aspart (Novolog Vial Sliding Scale -) 0 vial SQ [facility]; Protocol Last Admin: 06/15/20 16:58 Dose: Not Given Documented by: Insulin Detemir (Levemir Vial) 32 units SQ [facility] Last Admin: 06/14/20 22:03 Dose: 32 units Documented by: Lamotrigine (Lamictal -) 100 mg PO DAILY [facility] Last Admin: 06/15/20 11:09 Dose: 100 mg Documented by: Levothyroxine Sodium (Synthroid -) 50 mcg PO DAILY@0700 [facility] Last Admin: 06/15/20 06:40 Dose: 50 mcg Documented by: Liraglutide (Victoza -) 1.2 mg SQ DAILY@0700 [facility] Last Admin: 06/15/20 06:44 Dose: Not Given Documented by: Losartan Potassium (Cozaar -) 25 mg PO DAILY [facility] Last Admin: 06/15/20 11:15 Dose: 25 mg Documented by: Non-Formulary Medication (Erlotinib Hcl) 25 mg PO TID [facility] Last Admin: 06/15/20 14:22 Dose: 25 mg Documented by: Potassium Chloride (K-Dur -) 10 meq PO DAILY [facility] Last Admin: 06/15/20 11:09 Dose: 10 meq Documented by: Sertraline HCl (Zoloft -) 100 mg PO DAILY [facility] Last Admin: 06/15/20 11:10 Dose: 100 mg Documented by: - Objective Vital Signs: Vital Signs Temperature 98.6 F 06/15/20 14:01 Pulse Rate 68 06/15/20 14:01 Respiratory Rate 18 06/15/20 14:01 Blood Pressure 149/58 L 06/15/20 14:01 O2 Sat by Pulse Oximetry (%) 98 06/15/20 18:01 Constitutional: Yes: Well Nourished, No Distress Eyes: Yes: Conjunctiva Clear HENT: Yes: Atraumatic, Normocephalic Neck: Yes: Supple, Trachea Midline Cardiovascular: Yes: Regular Rate and Rhythm, S1, S2 Respiratory: Yes: Regular, CTA Bilaterally Gastrointestinal: Yes: Normal Bowel Sounds, Soft, Abdomen, Obese. No: Hepatomegaly, Splenomegaly Breast(s): Yes: WNL Musculoskeletal: Yes: WNL Extremities: Yes: WNL. No: Calf Tenderness Edema: No Wound/Incision: Yes: Clean/Dry (left posterior site of insertion) Neurological: Yes: Alert, Oriented Psychiatric: Yes: Alert, Oriented Labs: CBC, BMP 06/15/20 06:37 06/14/20 12:15 - ....Imaging Chest X-ray: Other (resolved left pneumothorax) Problem List - Problems (1) Pneumothorax after biopsy Assessment/Plan: pig tail catheter in place for drainage, minimal amount of serous liquid present, no discomfort at site or with movement repeat CXR this am showed resolution of the pneumothorax Code(s): J95.811 - POSTPROCEDURAL PNEUMOTHORAX (2) Lung cancer Assessment/Plan: continue Erlotinib DVT prophylaxis Code(s): C34.90 - MALIGNANT NEOPLASM OF UNSP PART OF UNSP BRONCHUS OR LUNG (3) Diabetes mellitus type 2 in nonobese Assessment/Plan: continue Victoza and LEvemir as well as regular insulin coverage hold for now Glipizide and Glucophage Code(s): E11.9 - TYPE 2 DIABETES MELLITUS WITHOUT COMPLICATIONS
[2020-06-15] MEDS: ATORVASTATIN CA 10 MG TABLET (FP) PO SCH (21:41)
[2020-06-15] MEDS: INSULIN (LEVEMIR) 100 UNITS/ML UNITS SQ SCH (21:42)
[2020-06-16] MEDS: INSULIN SLIDING SCALE (NOVOLOG) 1 VIAL SQ SCH ×4 (06:43→21:36)
[2020-06-16] MEDS: ERLOTINIB HCL PO SCH ×3 (06:49→21:40)
[2020-06-16] MEDS: LEVOTHYROXINE NA 50 MCG TABLET (FP) PO SCH (06:49)
[2020-06-16] MEDS: LIRAGLUTIDE 0.6 MG/0.1 ML PEN.INJCTR SQ SCH (06:49)
[2020-06-16 08:36] LABS: BASO % 0.6 % (0-2.0); EOS % 4.4 % (0-4.5); HEMATOCRIT 31.8 % (32.4-45.2); HEMOGLOBIN 10.3 GM/dL (10.7-15.3); LYMPH % 19.7 % (8-40); MCHC 32.5 g/dl (32.0-36.0); MEAN PLT VOLUME 7.9 fl (7.5-11.1); MONO % 6.7 % (3.8-10.2); NEUT % 68.6 % (42.8-82.8); PLATELET COUNT 323 K/MM3 (134-434); RDW 14.1 % (11.6-15.6); WHITE BLOOD COUNT 9.3 K/mm3 (4.0-10.0)
[2020-06-16] MEDS ORDERED: PT OWN MED DRAWER 7, Y5N ONE ×3 (09:27→22:44)
[2020-06-16] MEDS: SERTRALINE HCL 50 MG TABLET (FP) PO SCH (10:10)
[2020-06-16] MEDS: POTASSIUM CHLORIDE TABS 10 MEQ TABLET.ER (FP) PO SCH (10:10)
[2020-06-16] MEDS: LOSARTAN POTASSIUM 25 MG TABLET PO SCH (10:10)
[2020-06-16] MEDS: lamoTRIgine 100 MG TABLET PO SCH (10:10)
[2020-06-16] MEDS: ARIPIPRAZOLE 5 MG, ARIPIPRAZOLE 2 MG PO SCH (11:09)
--- NOTE | 2020-06-16 13:53 | PN ---
Progress Note (short form) - Note Progress Note: OOB to chair. Breathing feels stable. CXR: minimal Left apical PTX Intake & Output 06/13/20 06/14/20 06/15/20 06/16/20 23:59 23:59 23:59 23:59 Intake Total 360 320 200 Output Total 0 371 500 Balance 360 -51 -300 Weight 176 lb 4 oz Last Vital Signs Temp Pulse Resp BP Pulse Ox 98.8 F 72 20 149/62 99 06/16/20 10:00 06/16/20 10:00 06/16/20 10:00 06/16/20 10:00 06/16/20 10:00 Active Medications Acetaminophen (Tylenol -) 500 mg PO Q6H PRN PRN Reason: FOR CHEST PAIN Last Admin: 06/15/20 21:41 Dose: 500 mg Documented by: Alprazolam (Xanax -) 0.5 mg PO BID PRN PRN Reason: ANXIETY Last Admin: 06/15/20 11:10 Dose: 0.5 mg Documented by: Aripiprazole 5 mg/ (Aripiprazole 2 mg) 7 mg PO DAILY [facility] Last Admin: 06/16/20 11:09 Dose: 7 mg Documented by: Atorvastatin Calcium (Lipitor -) 10 mg PO [facility] Last Admin: 06/15/20 21:41 Dose: 10 mg Documented by: Insulin Aspart (Novolog Vial Sliding Scale -) 0 vial SQ [facility]; Protocol Last Admin: 06/16/20 11:14 Dose: 4 units Documented by: Insulin Detemir (Levemir Vial) 32 units SQ [facility] Last Admin: 06/15/20 21:42 Dose: 32 units Documented by: Lamotrigine (Lamictal -) 100 mg PO DAILY [facility] Last Admin: 06/16/20 10:10 Dose: 100 mg Documented by: Levothyroxine Sodium (Synthroid -) 50 mcg PO DAILY@0700 [facility] Last Admin: 06/16/20 06:49 Dose: 50 mcg Documented by: Liraglutide (Victoza -) 1.2 mg SQ DAILY@0700 [facility] Last Admin: 06/16/20 06:49 Dose: 1.2 mg Documented by: Losartan Potassium (Cozaar -) 25 mg PO DAILY [facility] Last Admin: 06/16/20 10:10 Dose: 25 mg Documented by: Magnesium Hydroxide (Milk Of Magnesia -) 30 ml PO Q12H PRN PRN Reason: CONSTIPATION Non-Formulary Medication (Erlotinib Hcl) 25 mg PO TID [facility] Last Admin: 06/16/20 13:25 Dose: 25 mg Documented by: Potassium Chloride (K-Dur -) 10 meq PO DAILY [facility] Last Admin: 06/16/20 10:10 Dose: 10 meq Documented by: Sertraline HCl (Zoloft -) 100 mg PO DAILY [facility] Last Admin: 06/16/20 10:10 Dose: 100 mg Documented by: General: Awake and alert, NAD HEENT: (-) Pallor Cards: RRR, no murmur appreciated Pulm: Left plerural catheter, W/O air leak Abd: Soft, nontender, nondistended Ext: Atraumatic. No LE edema. ROM intact. WWP Skin: Normal color, no rashes or lesions Neuro: Non-focal Laboratory Results - last 24 hr 06/15/20 06/15/20 06/16/20 16:47 21:26 05:40 WBC RBC Hgb Hct MCV MCH MCHC RDW Plt Count MPV Absolute Neuts (auto) Neutrophils % Lymphocytes % Monocytes % Eosinophils % Basophils % Nucleated RBC % POC Glucometer 133 154 149 06/16/20 06/16/20 07:36 11:13 WBC 9.3 RBC 3.70 Hgb 10.3 L Hct 31.8 L MCV 86.0 MCH 28.0 MCHC 32.5 RDW 14.1 Plt Count 323 MPV 7.9 Absolute Neuts (auto) 6.4 Neutrophils % 68.6 Lymphocytes % 19.7 D Monocytes % 6.7 Eosinophils % 4.4 Basophils % 0.6 Nucleated RBC % 0 POC Glucometer 222 IMP: PTX S/P CT guided biopsy S/P left pleural catheter insertion with significant improvement in left PTX Left lung Adenocarcinoma (acinar & micropapillary) HTN HLD DM Hypothyroidism Bipolar I GERD Pleural catheter to suction Supplemental O2 as needed Follow CXR in the AM : hope to place on water seal Incentive Spirometry VTE prophylaxis Dr Guzman
[2020-06-16] MEDS: MAGNESIUM HYDROX 2400MG/30ML ORAL SUSPENSION 30 ML CUP PO PRN (15:06)
[2020-06-16] MEDS: PANTOPRAZOLE SOD 40 MG SUSPENSION PACKET PO SCH (15:06)
--- NOTE | 2020-06-16 15:21 | PN ---
Progress Note, Physician Chief Complaint: patient with pneumothorax stable after pigtail catheter insertion , doing well, complains of constipation - Current Medication List Current Medications: Active Medications Acetaminophen (Tylenol -) 500 mg PO Q6H PRN PRN Reason: FOR CHEST PAIN Last Admin: 06/15/20 21:41 Dose: 500 mg Documented by: Alprazolam (Xanax -) 0.5 mg PO BID PRN PRN Reason: ANXIETY Last Admin: 06/15/20 11:10 Dose: 0.5 mg Documented by: Aripiprazole 5 mg/ (Aripiprazole 2 mg) 7 mg PO DAILY [facility] Last Admin: 06/16/20 11:09 Dose: 7 mg Documented by: Atorvastatin Calcium (Lipitor -) 10 mg PO HS [facility] Last Admin: 06/15/20 21:41 Dose: 10 mg Documented by: Insulin Aspart (Novolog Vial Sliding Scale -) 0 vial SQ [facility]; Protocol Last Admin: 06/16/20 11:14 Dose: 4 units Documented by: Insulin Detemir (Levemir Vial) 32 units SQ [facility] Last Admin: 06/15/20 21:42 Dose: 32 units Documented by: Lamotrigine (Lamictal -) 100 mg PO DAILY [facility] Last Admin: 06/16/20 10:10 Dose: 100 mg Documented by: Levothyroxine Sodium (Synthroid -) 50 mcg PO DAILY@0700 [facility] Last Admin: 06/16/20 06:49 Dose: 50 mcg Documented by: Liraglutide (Victoza -) 1.2 mg SQ DAILY@0700 [facility] Last Admin: 06/16/20 06:49 Dose: 1.2 mg Documented by: Losartan Potassium (Cozaar -) 25 mg PO DAILY [facility] Last Admin: 06/16/20 10:10 Dose: 25 mg Documented by: Magnesium Hydroxide (Milk Of Magnesia -) 30 ml PO Q12H PRN PRN Reason: CONSTIPATION Last Admin: 06/16/20 15:06 Dose: 30 ml Documented by: Non-Formulary Medication (Erlotinib Hcl) 25 mg PO TID [facility] Last Admin: 06/16/20 13:25 Dose: 25 mg Documented by: Pantoprazole Sodium (Protonix Packets For Oral Suspension -) 40 mg PO DAILY [facility] Last Admin: 06/16/20 15:06 Dose: 40 mg Documented by: Potassium Chloride (K-Dur -) 10 meq PO DAILY [facility] Last Admin: 06/16/20 10:10 Dose: 10 meq Documented by: Sertraline HCl (Zoloft -) 100 mg PO DAILY [facility] Last Admin: 06/16/20 10:10 Dose: 100 mg Documented by: - Objective Vital Signs: Vital Signs Temperature 98.5 F 06/16/20 14:00 Pulse Rate 73 06/16/20 14:00 Respiratory Rate 20 06/16/20 14:00 Blood Pressure 145/72 06/16/20 14:00 O2 Sat by Pulse Oximetry (%) 98 06/16/20 14:00 Constitutional: Yes: No Distress, Calm Eyes: Yes: Conjunctiva Clear, EOM Intact HENT: Yes: Atraumatic, Normocephalic Neck: Yes: Supple, Trachea Midline Cardiovascular: Yes: Regular Rate and Rhythm, S1, S2 Respiratory: Yes: Regular, CTA Bilaterally Gastrointestinal: Yes: Normal Bowel Sounds, Soft, Abdomen, Obese. No: Hepatomegaly, Splenomegaly Breast(s): Yes: WNL Musculoskeletal: Yes: WNL Extremities: Yes: WNL. No: Calf Tenderness Edema: No Peripheral Pulses WNL: Yes Wound/Incision: Yes: Well Approximated Neurological: Yes: Alert, Oriented Psychiatric: Yes: Alert, Oriented Labs: CBC, BMP 06/16/20 07:36 06/14/20 12:15 Problem List - Problems (1) Pneumothorax after biopsy Assessment/Plan: pig tail catheter in place for drainage, minimal amount of serous liquid present, no discomfort at site or with movement repeat CXR this am showed resolution of the pneumothorax Code(s): J95.811 - POSTPROCEDURAL PNEUMOTHORAX (2) Lung cancer Assessment/Plan: continue Erlotinib DVT prophylaxis Code(s): C34.90 - MALIGNANT NEOPLASM OF UNSP PART OF UNSP BRONCHUS OR LUNG (3) Diabetes mellitus type 2 in nonobese Assessment/Plan: continue Victoza and LEvemir as well as regular insulin coverage hold for now Glipizide and Glucophage Code(s): E11.9 - TYPE 2 DIABETES MELLITUS WITHOUT COMPLICATIONS
--- NOTE | 2020-06-16 16:41 | PN ---
Progress Note (short form) - Note Progress Note: Patient seen in follow up. No new complaints. No significant events overnight. Inpatient Meds reviewed. Current Medications Generic Name Dose Route Start Last Admin Trade Name Freq PRN Reason Stop Dose Admin Acetaminophen 500 mg 06/14/20 18:29 06/15/20 21:41 Tylenol - PO 500 mg Q6H PRN Administration FOR CHEST PAIN Alprazolam 0.5 mg 06/14/20 18:07 06/15/20 11:10 Xanax - PO 0.5 mg BID PRN Administration ANXIETY Aripiprazole 5 mg/ 7 mg 06/14/20 18:15 06/16/20 11:09 Aripiprazole 2 mg PO 7 mg DAILY [facility] Administration Atorvastatin Calcium 10 mg 06/14/20 22:00 06/15/20 21:41 Lipitor - PO 10 mg HS [facility] Administration Insulin Aspart 0 vial 06/14/20 22:00 06/16/20 11:14 Novolog Vial Sliding Scale - SQ 4 units ACHS [facility] Administration Protocol Insulin Detemir 32 units 06/14/20 22:00 06/15/20 21:42 Levemir Vial SQ 32 units HS [facility] Administration Lamotrigine 100 mg 06/14/20 18:15 06/16/20 10:10 Lamictal - PO 100 mg DAILY [facility] Administration Levothyroxine Sodium 50 mcg 06/15/20 07:00 06/16/20 06:49 Synthroid - PO 50 mcg DAILY@0700 [facility] Administration Liraglutide 1.2 mg 06/15/20 07:00 06/16/20 06:49 Victoza - SQ 1.2 mg DAILY@0700 [facility] Administration Losartan Potassium 25 mg 06/14/20 18:05 06/16/20 10:10 Cozaar - PO 25 mg DAILY [facility] Administration Magnesium Hydroxide 30 ml 06/16/20 13:19 06/16/20 15:06 Milk Of Magnesia - PO 30 ml Q12H PRN Administration CONSTIPATION Non-Formulary Medication 25 mg 06/14/20 22:00 06/16/20 13:25 Erlotinib Hcl PO 25 mg TID [facility] Administration Pantoprazole Sodium 40 mg 06/16/20 14:00 06/16/20 15:06 Protonix Packets For Oral Suspension - PO 40 mg DAILY [facility] Administration Potassium Chloride 10 meq 06/14/20 18:15 06/16/20 10:10 K-Dur - PO 10 meq DAILY [facility] Administration Sertraline HCl 100 mg 06/14/20 18:15 06/16/20 10:10 Zoloft - PO 100 mg DAILY [facility] Administration On Examination: Last Vital Signs Temp Pulse Resp BP Pulse Ox 98.5 F 73 20 145/72 98 06/16/20 14:00 06/16/20 14:00 06/16/20 14:00 06/16/20 14:00 06/16/20 14:00 General: In no acute distress, sitting in chair at bedside. Extremities: No pallor or icterus. . CVS: S1, S2, regular, no gallop or murmur. Chest: good air entry bilaterally, clear. NSCLC, EGFR pos, with suspicion of progressionof disease, s/p recent biopsy of lung lesion, complicated by N ICD in situ. Abdomen: Non-distended, non-tender, no palpable organomegaly. Neuro: Alert, oriented, non-focal. Labs: CBC, BMP 06/16/20 07:36 06/14/20 12:15 Assessment. NSCLC - EGFR pos, with suspicion of progression of disease, s/p biopsy of lung lesion, complicated by pneumothroax on L, improving with ICD. Will follow.
[2020-06-16] MEDS ORDERED: INSULIN (NOVOLOG) ASPART 100 UNITS/ML 10ML VIAL ONE (21:11)
[2020-06-16] MEDS: ALPRAZolam 0.25 MG TABLET PO PRN (21:38)
[2020-06-16] MEDS: ATORVASTATIN CA 10 MG TABLET (FP) PO SCH (21:38)
[2020-06-16] MEDS: INSULIN (LEVEMIR) 100 UNITS/ML UNITS SQ SCH (21:39)
[2020-06-17] MEDS: INSULIN SLIDING SCALE (NOVOLOG) 1 VIAL SQ SCH ×4 (06:14→22:14)
[2020-06-17] MEDS: ERLOTINIB HCL PO SCH ×3 (06:15→22:12)
[2020-06-17] MEDS: LEVOTHYROXINE NA 50 MCG TABLET (FP) PO SCH (06:15)
[2020-06-17] MEDS: LIRAGLUTIDE 0.6 MG/0.1 ML PEN.INJCTR SQ SCH (06:16)
[2020-06-17] MEDS ORDERED: INSULIN (NOVOLOG) ASPART 100 UNITS/ML 10ML VIAL ONE (06:57)
[2020-06-17] MEDS: ARIPIPRAZOLE 5 MG, ARIPIPRAZOLE 2 MG PO SCH (09:16)
[2020-06-17] MEDS: POTASSIUM CHLORIDE TABS 10 MEQ TABLET.ER (FP) PO SCH (09:17)
[2020-06-17] MEDS: LOSARTAN POTASSIUM 25 MG TABLET PO SCH (09:17)
[2020-06-17] MEDS: SERTRALINE HCL 50 MG TABLET (FP) PO SCH (09:17)
[2020-06-17] MEDS: lamoTRIgine 100 MG TABLET PO SCH (09:18)
[2020-06-17] MEDS: MAGNESIUM HYDROX 2400MG/30ML ORAL SUSPENSION 30 ML CUP PO PRN (09:18)
[2020-06-17] MEDS: PANTOPRAZOLE SOD 40 MG SUSPENSION PACKET PO SCH (09:18)
[2020-06-17] MEDS: ACETAMINOPHEN 500 MG TABLET (FP) PO PRN ×2 (09:18→17:59)
[2020-06-17] MEDS ORDERED: PT OWN MED DRAWER 7, Y5N ONE ×2 (11:12→13:26)
--- NOTE | 2020-06-17 13:00 | PN ---
Progress Note (short form) - Note Progress Note: OOB to chair. Breathing feels better today. CXR: No Left apical PTX noted Laboratory Results - last 24 hr 06/16/20 06/16/20 06/17/20 17:03 21:36 06:12 POC Glucometer 157 175 153 06/17/20 11:06 POC Glucometer 203 General: Awake and alert, NAD HEENT: (-) Pallor Cards: RRR, no murmur appreciated Pulm: Left plerural catheter, W/O air leak Abd: Soft, nontender, nondistended Ext: Atraumatic. No LE edema. ROM intact. WWP Skin: Normal color, no rashes or lesions Neuro: Non-focal Laboratory Results - last 24 hr 06/16/20 06/16/20 06/17/20 17:03 21:36 06:12 POC Glucometer 157 175 153 06/17/20 11:06 POC Glucometer 203 IMP: PTX S/P CT guided biopsy S/P left pleural catheter insertion with significant improvement in left PTX Left lung Adenocarcinoma (acinar & micropapillary) HTN HLD DM Hypothyroidism Bipolar I GERD Will remove suction from Pleural catheter today Supplemental O2 as needed Follow CXR in the AM Incentive Spirometry VTE prophylaxis Dr Guzman
--- NOTE | 2020-06-17 13:36 | PN ---
Progress Note (short form) - Note Progress Note: Patient seen in follow up. No new complaints. No significant events overnight. PTX not appreciated on current X-ray Inpatient Meds reviewed. Current Medications Generic Name Dose Route Start Last Admin Trade Name Freq PRN Reason Stop Dose Admin Acetaminophen 500 mg 06/14/20 18:29 06/17/20 09:18 Tylenol - PO 500 mg Q6H PRN Administration FOR CHEST PAIN Alprazolam 0.5 mg 06/14/20 18:07 06/16/20 21:38 Xanax - PO 0.5 mg BID PRN Administration ANXIETY Aripiprazole 5 mg/ 7 mg 06/14/20 18:15 06/17/20 09:16 Aripiprazole 2 mg PO 7 mg DAILY [facility] Administration Atorvastatin Calcium 10 mg 06/14/20 22:00 06/16/20 21:38 Lipitor - PO 10 mg HS [facility] Administration Insulin Aspart 0 vial 06/14/20 22:00 06/17/20 11:20 Novolog Vial Sliding Scale - SQ 4 units ACHS [facility] Administration Protocol Insulin Detemir 32 units 06/14/20 22:00 06/16/20 21:39 Levemir Vial SQ 32 units HS [facility] Administration Lamotrigine 100 mg 06/14/20 18:15 06/17/20 09:18 Lamictal - PO 100 mg DAILY [facility] Administration Levothyroxine Sodium 50 mcg 06/15/20 07:00 06/17/20 06:15 Synthroid - PO 50 mcg DAILY@0700 [facility] Administration Liraglutide 1.2 mg 06/15/20 07:00 06/17/20 06:16 Victoza - SQ 1.2 mg DAILY@0700 [facility] Administration Losartan Potassium 25 mg 06/14/20 18:05 06/17/20 09:17 Cozaar - PO 25 mg DAILY [facility] Administration Magnesium Hydroxide 30 ml 06/16/20 13:19 06/17/20 09:18 Milk Of Magnesia - PO 30 ml Q12H PRN Administration CONSTIPATION Non-Formulary Medication 25 mg 06/14/20 22:00 06/17/20 13:25 Erlotinib Hcl PO 25 mg TID [facility] Administration Pantoprazole Sodium 40 mg 06/16/20 14:00 06/17/20 09:18 Protonix Packets For Oral Suspension - PO 40 mg DAILY [facility] Administration Potassium Chloride 10 meq 06/14/20 18:15 06/17/20 09:17 K-Dur - PO 10 meq DAILY [facility] Administration Sertraline HCl 100 mg 06/14/20 18:15 06/17/20 09:17 Zoloft - PO 100 mg DAILY [facility] Administration On Examination: Last Vital Signs Temp Pulse Resp BP Pulse Ox 98.7 F 84 20 129/45 L 100 06/17/20 09:01 06/17/20 09:01 06/17/20 09:01 06/17/20 09:01 06/17/20 09:01 General: In no acute distress, sitting in chair at bedside. Extremities: No pallor or icterus. . CVS: S1, S2, regular, no gallop or murmur. Chest: good air entry bilaterally, clear. NSCLC, EGFR pos, with suspicion of pro gressionof disease, s/p recent biopsy of lung lesion, complicated by N ICD in situ. Abdomen: Non-distended, non-tender, no palpable organomegaly. Neuro: Alert, oriented, non-focal. Labs: CBC, BMP 06/16/20 07:36 06/14/20 12:15 Assessment. NSCLC - EGFR pos, with suspicion of progression of disease, s/p biopsy of lung lesion, complicated by pneumothorax on L, resolved now with with ICD. For discharge when ICD removed - ?tomorrow. Will follow up with dr Verdugo for results of biopsy.
[2020-06-17] MEDS ORDERED: POLYETHYLENE GLYCOL 3350 119 GM BTL PO ONE (15:45)
[2020-06-17] MEDS ORDERED: BISACODYL 10 MG SUPP.RECT PR ONE (15:46)
--- NOTE | 2020-06-17 15:47 | PN ---
Progress Note, Physician Chief Complaint: patient with pneumothorax stable after pigtail catheter insertion , doing well, complains of constipation and abdominal discomfort History of Present Illness: 85 yo female with PMH of left lung cancer developed pneumothorax after lung biopsy. SHe had a pigtail catheter inserted in the left hemithorax and tolerated the procedure well. The acftheter was seald today amd it will be removed tomorrow. - Current Medication List Current Medications: Active Medications Acetaminophen (Tylenol -) 500 mg PO Q6H PRN PRN Reason: FOR CHEST PAIN Last Admin: 06/17/20 09:18 Dose: 500 mg Documented by: Alprazolam (Xanax -) 0.5 mg PO BID PRN PRN Reason: ANXIETY Last Admin: 06/16/20 21:38 Dose: 0.5 mg Documented by: Aripiprazole 5 mg/ (Aripiprazole 2 mg) 7 mg PO DAILY [facility] Last Admin: 06/17/20 09:16 Dose: 7 mg Documented by: Atorvastatin Calcium (Lipitor -) 10 mg PO [facility] Last Admin: 06/16/20 21:38 Dose: 10 mg Documented by: Bisacodyl (Dulcolax Suppository -) 10 mg [place] ONCE ONE Stop: 06/17/20 15:47 Insulin Aspart (Novolog Vial Sliding Scale -) 0 vial SQ [facility]; Protocol Last Admin: 06/17/20 11:20 Dose: 4 units Documented by: Insulin Detemir (Levemir Vial) 32 units SQ [facility] Last Admin: 06/16/20 21:39 Dose: 32 units Documented by: Lamotrigine (Lamictal -) 100 mg PO DAILY [facility] Last Admin: 06/17/20 09:18 Dose: 100 mg Documented by: Levothyroxine Sodium (Synthroid -) 50 mcg PO DAILY@0700 [facility] Last Admin: 06/17/20 06:15 Dose: 50 mcg Documented by: Liraglutide (Victoza -) 1.2 mg SQ DAILY@0700 [facility] Last Admin: 06/17/20 06:16 Dose: 1.2 mg Documented by: Losartan Potassium (Cozaar -) 25 mg PO DAILY [facility] Last Admin: 06/17/20 09:17 Dose: 25 mg Documented by: Magnesium Hydroxide (Milk Of Magnesia -) 30 ml PO Q12H PRN PRN Reason: CONSTIPATION Last Admin: 06/17/20 09:18 Dose: 30 ml Documented by: Non-Formulary Medication (Erlotinib Hcl) 25 mg PO TID [facility] Last Admin: 06/17/20 13:25 Dose: 25 mg Documented by: Pantoprazole Sodium (Protonix Packets For Oral Suspension -) 40 mg PO DAILY [facility] Last Admin: 06/17/20 09:18 Dose: 40 mg Documented by: Polyethylene Glycol (Miralax (For Daily Use) -) 17 gm PO ONCE ONE Stop: 06/17/20 15:46 Potassium Chloride (K-Dur -) 10 meq PO DAILY [facility] Last Admin: 06/17/20 09:17 Dose: 10 meq Documented by: Sertraline HCl (Zoloft -) 100 mg PO DAILY [facility] Last Admin: 06/17/20 09:17 Dose: 100 mg Documented by: - Objective Vital Signs: Vital Signs Temperature 99.3 F 06/17/20 14:00 Pulse Rate 73 06/17/20 14:00 Respiratory Rate 20 06/17/20 14:00 Blood Pressure 144/67 06/17/20 14:00 O2 Sat by Pulse Oximetry (%) 100 06/17/20 14:00 Constitutional: Yes: Anxious Eyes: Yes: Conjunctiva Clear, EOM Intact HENT: Yes: Atraumatic, Normocephalic Neck: Yes: Supple, Trachea Midline Cardiovascular: Yes: Regular Rate and Rhythm, S1, S2 Respiratory: Yes: Regular, CTA Bilaterally Gastrointestinal: Yes: Normal Bowel Sounds, Soft, Abdomen, Obese. No: Hepatomegaly, Splenomegaly ...Rectal Exam: Yes: Deferred Extremities: No: Calf Tenderness Edema: No Peripheral Pulses WNL: Yes Neurological: Yes: Alert, Oriented Psychiatric: Yes: Alert, Oriented Labs: CBC, BMP 06/16/20 07:36 06/14/20 12:15 - ....Imaging Chest X-ray: Other (suboptimal portable CXR with resolution of the pneumothorax) Problem List - Problems (1) Pneumothorax after biopsy Assessment/Plan: pig tail catheter in place for drainage, minimal amount of serous liquid present, no discomfort at site or with movement repeat CXR this am showed resolution of the pneumothora will have a PA and lateral CXR in aml Code(s): J95.811 - POSTPROCEDURAL PNEUMOTHORAX (2) Lung cancer Assessment/Plan: continue Erlotinib DVT prophylaxis Code(s): C34.90 - MALIGNANT NEOPLASM OF UNSP PART OF UNSP BRONCHUS OR LUNG (3) Diabetes mellitus type 2 in nonobese Assessment/Plan: continue Victoza and LEvemir as well as regular insulin coverage hold for now Glipizide and Glucophage Code(s): E11.9 - TYPE 2 DIABETES MELLITUS WITHOUT COMPLICATIONS (4) Constipation Assessment/Plan: Miralax 17 gm po once Code(s): K59.00 - CONSTIPATION, UNSPECIFIED
[2020-06-17] MEDS: ATORVASTATIN CA 10 MG TABLET (FP) PO SCH (22:10)
[2020-06-17] MEDS: INSULIN (LEVEMIR) 100 UNITS/ML UNITS SQ SCH (22:14)
[2020-06-17] MEDS: ALPRAZolam 0.25 MG TABLET PO PRN (22:22)
[2020-06-18] MEDS: INSULIN SLIDING SCALE (NOVOLOG) 1 VIAL SQ SCH ×4 (06:50→21:54)
[2020-06-18] MEDS: ERLOTINIB HCL PO SCH ×3 (06:54→21:52)
[2020-06-18] MEDS: LEVOTHYROXINE NA 50 MCG TABLET (FP) PO SCH (06:54)
[2020-06-18] MEDS: LIRAGLUTIDE 0.6 MG/0.1 ML PEN.INJCTR SQ SCH (06:54)
[2020-06-18] MEDS ORDERED: PT OWN MED DRAWER 7, Y5N ONE ×3 (07:05→13:55)
[2020-06-18] MEDS: ACETAMINOPHEN 500 MG TABLET (FP) PO PRN ×2 (08:48→21:50)
[2020-06-18] MEDS: lamoTRIgine 100 MG TABLET PO SCH (09:28)
[2020-06-18] MEDS: SERTRALINE HCL 50 MG TABLET (FP) PO SCH (09:28)
[2020-06-18] MEDS: PANTOPRAZOLE SOD 40 MG SUSPENSION PACKET PO SCH (09:28)
[2020-06-18] MEDS: ARIPIPRAZOLE 5 MG, ARIPIPRAZOLE 2 MG PO SCH (09:28)
[2020-06-18] MEDS: POTASSIUM CHLORIDE TABS 10 MEQ TABLET.ER (FP) PO SCH (09:28)
[2020-06-18] MEDS: LOSARTAN POTASSIUM 25 MG TABLET PO SCH (09:28)
[2020-06-18] MEDS ORDERED: INSULIN (NOVOLOG) ASPART 100 UNITS/ML 10ML VIAL ONE ×2 (11:09→16:50)
--- NOTE | 2020-06-18 13:13 | PN ---
Progress Note (short form) - Note Progress Note: OOB to chair. Breathing feels better today. CXR: No discrete Left apical PTX noted Intake & Output 06/15/20 06/16/20 06/17/20 06/18/20 23:59 23:59 23:59 23:59 Intake Total 320 1110 500 100 Output Total 371 1100 4 Balance -51 10 496 100 Last Vital Signs Temp Pulse Resp BP Pulse Ox 97.2 F L 74 20 118/50 L 97 06/18/20 09:00 06/18/20 09:00 06/18/20 09:00 06/18/20 09:00 06/18/20 10:00 Active Medications Acetaminophen (Tylenol -) 500 mg PO Q6H PRN PRN Reason: FOR CHEST PAIN Last Admin: 06/18/20 08:48 Dose: 500 mg Documented by: Alprazolam (Xanax -) 0.5 mg PO BID PRN PRN Reason: ANXIETY Last Admin: 06/17/20 22:22 Dose: 0.5 mg Documented by: Aripiprazole 5 mg/ (Aripiprazole 2 mg) 7 mg PO DAILY [facility] Last Admin: 06/18/20 09:28 Dose: 7 mg Documented by: Atorvastatin Calcium (Lipitor -) 10 mg PO [facility] Last Admin: 06/17/20 22:10 Dose: 10 mg Documented by: Insulin Aspart (Novolog Vial Sliding Scale -) 0 vial SQ [facility]; Protocol Last Admin: 06/18/20 11:01 Dose: 2 units Documented by: Insulin Detemir (Levemir Vial) 32 units SQ [facility] Last Admin: 06/17/20 22:14 Dose: 32 units Documented by: Lamotrigine (Lamictal -) 100 mg PO DAILY [facility] Last Admin: 06/18/20 09:28 Dose: 100 mg Documented by: Levothyroxine Sodium (Synthroid -) 50 mcg PO DAILY@0700 [facility] Last Admin: 06/18/20 06:54 Dose: 50 mcg Documented by: Liraglutide (Victoza -) 1.2 mg SQ DAILY@0700 [facility] Last Admin: 06/18/20 06:54 Dose: 1.2 mg Documented by: Losartan Potassium (Cozaar -) 25 mg PO DAILY [facility] Last Admin: 06/18/20 09:28 Dose: 25 mg Documented by: Magnesium Hydroxide (Milk Of Magnesia -) 30 ml PO Q12H PRN PRN Reason: CONSTIPATION Last Admin: 06/17/20 09:18 Dose: 30 ml Documented by: Non-Formulary Medication (Erlotinib Hcl) 25 mg PO TID [facility] Last Admin: 06/18/20 06:54 Dose: 25 mg Documented by: Pantoprazole Sodium (Protonix Packets For Oral Suspension -) 40 mg PO DAILY [facility] Last Admin: 06/18/20 09:28 Dose: 40 mg Documented by: Potassium Chloride (K-Dur -) 10 meq PO DAILY [facility] Last Admin: 06/18/20 09:28 Dose: 10 meq Documented by: Sertraline HCl (Zoloft -) 100 mg PO DAILY [facility] Last Admin: 06/18/20 09:28 Dose: 100 mg Documented by: General: Awake and alert, NAD HEENT: (-) Pallor Cards: RRR, no murmur appreciated Pulm: Left plerural catheter, W/O air leak Abd: Soft, nontender, nondistended Ext: Atraumatic. No LE edema. ROM intact. WWP Skin: Normal color, no rashes or lesions Neuro: Non-focal Laboratory Results - last 24 hr 06/17/20 06/17/20 06/18/20 16:38 22:03 06:40 POC Glucometer 137 247 130 06/18/20 10:57 POC Glucometer 189 IMP: PTX S/P CT guided biopsy S/P left pleural catheter insertion with significant improvement in left PTX Left lung Adenocarcinoma (acinar & micropapillary) HTN HLD DM Hypothyroidism Bipolar I GERD Pleural catheter clamped : repeat CXR @ 3PM Supplemental O2 as needed Incentive Spirometry VTE prophylaxis Dr Guzman
--- NOTE | 2020-06-18 14:31 | PN ---
Progress Note (short form) - Note Progress Note: Oncology Interval hx: patient seen and examined at bedside, no acute events. Reports feeling well with no issues breathing. Plan to remove catheter today and repeat CXR P/E General: in NAD, A&Ox3 HEENT: NCAT, PERRL, anicteric sclera, mmm Neck: supple CVS: S1, S2, no m/r/g Resp: CTA; Left pigtail in place Abd: +BS, soft, NT, nD no pain on palpation Ext: no ll edema A/P: 85F with metastatic Lung Adeno on Erlotinib s/p recent lung biopsy c/b pneumo requiring L pleral pigtail -patient will need outpatient follow up with Oncologist when discharged. She is aware to call Dr Verdugo's office for an appointment -in the meantime, Erlotinib should be continued
[2020-06-18] MEDS: ATORVASTATIN CA 10 MG TABLET (FP) PO SCH (21:50)
[2020-06-18] MEDS: ALPRAZolam 0.25 MG TABLET PO PRN (21:52)
[2020-06-18] MEDS: INSULIN (LEVEMIR) 100 UNITS/ML UNITS SQ SCH (21:53)
--- NOTE | 2020-06-18 22:38 | PN ---
Progress Note, Physician Chief Complaint: patient with pneumothorax stable after pigtail catheter insertion , doing well, constipation and abdominal discomfort resolved History of Present Illness: 85 yo female with PMH of left lung cancer developed pneumothorax after lung biopsy. SHe had a pigtail catheter inserted in the left hemithorax and tolerated the procedure well. The pigtail catheter and chest tube will be removed today. - Current Medication List Current Medications: Active Medications Acetaminophen (Tylenol -) 500 mg PO Q6H PRN PRN Reason: FOR CHEST PAIN Last Admin: 06/18/20 21:50 Dose: 500 mg Documented by: Alprazolam (Xanax -) 0.5 mg PO BID PRN PRN Reason: ANXIETY Last Admin: 06/18/20 21:52 Dose: 0.5 mg Documented by: Aripiprazole 5 mg/ (Aripiprazole 2 mg) 7 mg PO DAILY [facility] Last Admin: 06/18/20 09:28 Dose: 7 mg Documented by: Atorvastatin Calcium (Lipitor -) 10 mg PO [facility] Last Admin: 06/18/20 21:50 Dose: 10 mg Documented by: Insulin Aspart (Novolog Vial Sliding Scale -) 0 vial SQ [facility]; Protocol Last Admin: 06/18/20 21:54 Dose: 2 units Documented by: Insulin Detemir (Levemir Vial) 32 units SQ [facility] Last Admin: 06/18/20 21:53 Dose: 32 units Documented by: Lamotrigine (Lamictal -) 100 mg PO DAILY [facility] Last Admin: 06/18/20 09:28 Dose: 100 mg Documented by: Levothyroxine Sodium (Synthroid -) 50 mcg PO DAILY@0700 [facility] Last Admin: 06/18/20 06:54 Dose: 50 mcg Documented by: Liraglutide (Victoza -) 1.2 mg SQ DAILY@0700 [facility] Last Admin: 06/18/20 06:54 Dose: 1.2 mg Documented by: Losartan Potassium (Cozaar -) 25 mg PO DAILY [facility] Last Admin: 06/18/20 09:28 Dose: 25 mg Documented by: Magnesium Hydroxide (Milk Of Magnesia -) 30 ml PO Q12H PRN PRN Reason: CONSTIPATION Last Admin: 06/17/20 09:18 Dose: 30 ml Documented by: Non-Formulary Medication (Erlotinib Hcl) 25 mg PO TID [facility] Last Admin: 06/18/20 21:52 Dose: Not Given Documented by: Pantoprazole Sodium (Protonix Packets For Oral Suspension -) 40 mg PO DAILY [facility] Last Admin: 06/18/20 09:28 Dose: 40 mg Documented by: Potassium Chloride (K-Dur -) 10 meq PO DAILY [facility] Last Admin: 06/18/20 09:28 Dose: 10 meq Documented by: Sertraline HCl (Zoloft -) 100 mg PO DAILY [facility] Last Admin: 06/18/20 09:28 Dose: 100 mg Documented by: - Objective Vital Signs: Vital Signs Temperature 98.8 F 06/18/20 20:54 Pulse Rate 77 06/18/20 20:54 Respiratory Rate 20 06/18/20 20:54 Blood Pressure 148/64 06/18/20 20:54 O2 Sat by Pulse Oximetry (%) 100 06/18/20 20:54 Constitutional: Yes: No Distress, Calm Eyes: Yes: Conjunctiva Clear, EOM Intact HENT: No: Hoarseness Cardiovascular: Yes: Regular Rate and Rhythm, S1, S2 Respiratory: Yes: Regular, CTA Bilaterally, On Nasal O2 Gastrointestinal: Yes: Normal Bowel Sounds, Soft, Abdomen, Obese ...Rectal Exam: Yes: Deferred Breast(s): Yes: WNL Extremities: No: Calf Tenderness Edema: No Peripheral Pulses WNL: Yes Neurological: Yes: Alert, Oriented Psychiatric: Yes: Alert, Oriented Labs: CBC, BMP 06/16/20 07:36 06/14/20 12:15 Problem List - Problems (1) Pneumothorax after biopsy Assessment/Plan: pig tail catheter in place for drainage, no drainage present and no discomfort at site or with movement repeat CXR this am showed resolution of the pneumothorax will have a PA and lateral CXR pending Code(s): J95.811 - POSTPROCEDURAL PNEUMOTHORAX (2) Lung cancer Assessment/Plan: continue Erlotinib DVT prophylaxis Code(s): C34.90 - MALIGNANT NEOPLASM OF UNSP PART OF UNSP BRONCHUS OR LUNG (3) Diabetes mellitus type 2 in nonobese Assessment/Plan: continue Victoza and LEvemir as well as regular insulin coverage hold for now Glipizide and Glucophage Code(s): E11.9 - TYPE 2 DIABETES MELLITUS WITHOUT COMPLICATIONS (4) Constipation Assessment/Plan: Miralax 17 gm po once Code(s): K59.00 - CONSTIPATION, UNSPECIFIED
[2020-06-19] MEDS: INSULIN SLIDING SCALE (NOVOLOG) 1 VIAL SQ SCH ×3 (06:55→17:18)
[2020-06-19] MEDS: ERLOTINIB HCL PO SCH ×2 (06:55→13:52)
[2020-06-19] MEDS: LIRAGLUTIDE 0.6 MG/0.1 ML PEN.INJCTR SQ SCH (07:00)
[2020-06-19] MEDS: LEVOTHYROXINE NA 50 MCG TABLET (FP) PO SCH (07:00)
[2020-06-19] MEDS ORDERED: PT OWN MED DRAWER 7, Y5N ONE (10:25)
[2020-06-19] MEDS: SERTRALINE HCL 50 MG TABLET (FP) PO SCH (10:29)
[2020-06-19] MEDS: lamoTRIgine 100 MG TABLET PO SCH (10:29)
[2020-06-19] MEDS: POTASSIUM CHLORIDE TABS 10 MEQ TABLET.ER (FP) PO SCH (10:29)
[2020-06-19] MEDS: PANTOPRAZOLE SOD 40 MG SUSPENSION PACKET PO SCH (10:29)
[2020-06-19] MEDS: LOSARTAN POTASSIUM 25 MG TABLET PO SCH (10:29)
[2020-06-19] MEDS: ARIPIPRAZOLE 5 MG, ARIPIPRAZOLE 2 MG PO SCH (10:30)
[2020-06-19] MEDS: ACETAMINOPHEN 500 MG TABLET (FP) PO PRN (10:34)
--- NOTE | 2020-06-19 14:37 | PN ---
Progress Note (short form) - Note Progress Note: OOB to chair. Breathing feels overall better. Pleural catheter removed yesterday. Intake & Output 06/16/20 06/17/20 06/18/20 06/19/20 23:59 23:59 23:59 23:59 Intake Total 1110 500 100 Output Total 1100 4 Balance 10 496 100 Last Vital Signs Temp Pulse Resp BP Pulse Ox 98.8 F 76 18 126/52 L 95 06/19/20 08:55 06/19/20 08:55 06/19/20 08:55 06/19/20 08:55 06/19/20 10:00 Active Medications Acetaminophen (Tylenol -) 500 mg PO Q6H PRN PRN Reason: FOR CHEST PAIN Last Admin: 06/19/20 10:34 Dose: 500 mg Documented by: Alprazolam (Xanax -) 0.5 mg PO BID PRN PRN Reason: ANXIETY Last Admin: 06/18/20 21:52 Dose: 0.5 mg Documented by: Aripiprazole 5 mg/ (Aripiprazole 2 mg) 7 mg PO DAILY [facility] Last Admin: 06/19/20 10:30 Dose: 7 mg Documented by: Atorvastatin Calcium (Lipitor -) 10 mg PO [facility] Last Admin: 06/18/20 21:50 Dose: 10 mg Documented by: Insulin Aspart (Novolog Vial Sliding Scale -) 0 vial SQ [facility]; Protocol Last Admin: 06/19/20 11:57 Dose: Not Given Documented by: Insulin Detemir (Levemir Vial) 32 units SQ [facility] Last Admin: 06/18/20 21:53 Dose: 32 units Documented by: Lamotrigine (Lamictal -) 100 mg PO DAILY [facility] Last Admin: 06/19/20 10:29 Dose: 100 mg Documented by: Levothyroxine Sodium (Synthroid -) 50 mcg PO DAILY@0700 [facility] Last Admin: 06/19/20 07:00 Dose: 50 mcg Documented by: Liraglutide (Victoza -) 1.2 mg SQ DAILY@0700 [facility] Last Admin: 06/19/20 07:00 Dose: 1.2 mg Documented by: Losartan Potassium (Cozaar -) 25 mg PO DAILY [facility] Last Admin: 06/19/20 10:29 Dose: 25 mg Documented by: Magnesium Hydroxide (Milk Of Magnesia -) 30 ml PO Q12H PRN PRN Reason: CONSTIPATION Last Admin: 06/17/20 09:18 Dose: 30 ml Documented by: Non-Formulary Medication (Erlotinib Hcl) 25 mg PO TID [facility] Last Admin: 06/19/20 13:52 Dose: Not Given Documented by: Pantoprazole Sodium (Protonix Packets For Oral Suspension -) 40 mg PO DAILY [facility] Last Admin: 06/19/20 10:29 Dose: 40 mg Documented by: Potassium Chloride (K-Dur -) 10 meq PO DAILY [facility] Last Admin: 06/19/20 10:29 Dose: 10 meq Documented by: Sertraline HCl (Zoloft -) 100 mg PO DAILY [facility] Last Admin: 06/19/20 10:29 Dose: 100 mg Documented by: General: Awake and alert, NAD HEENT: (-) Pallor Cards: RRR, no murmur appreciated Pulm: Clear Abd: Soft, nontender, nondistended Ext: No LE edema. ROM intact. WWP Skin: Normal color, no rashes or lesions Neuro: Non-focal Laboratory Results - last 24 hr 06/18/20 06/18/20 06/19/20 16:47 21:48 05:58 POC Glucometer 163 170 121 06/19/20 11:56 POC Glucometer 146 IMP: PTX S/P CT guided biopsy S/P left pleural catheter insertion with significant improvement in left PTX Left lung Adenocarcinoma (acinar & micropapillary) HTN HLD DM Hypothyroidism Bipolar I GERD There is no Pulmonary contraindication for DC home Dr Guzman
[2020-06-19 17:23] VITALS: BP 130/65; PULSE 69; TEMP 98
--- NOTE | 2020-06-19 17:41 | DS ---
Physical Examination Vital Signs: Vital Signs Temperature 98 F 06/19/20 17:20 Pulse Rate 69 06/19/20 17:20 Respiratory Rate 20 06/19/20 17:20 Blood Pressure 130/65 06/19/20 17:20 O2 Sat by Pulse Oximetry (%) 100 06/19/20 14:00 Constitutional: Yes: No Distress, Calm Eyes: Yes: Conjunctiva Clear, EOM Intact HENT: Yes: Atraumatic, Normocephalic Neck: Yes: Supple, Trachea Midline Cardiovascular: Yes: Regular Rate and Rhythm, Murmur (systolic), S1, S2 Respiratory: Yes: Other (crepittaions at boy[place] bases, good air enty bilaterally). No: Rales Gastrointestinal: Yes: Normal Bowel Sounds, Soft, Abdomen, Obese. No: Hepatomegaly, Splenomegaly Extremities: No: Calf Tenderness Edema: No Peripheral Pulses WNL: Yes Integumentary: Yes: WNL Psychiatric: Yes: Alert, Oriented Labs: CBC, BMP 06/16/20 07:36 06/14/20 12:15 Discharge Summary Problems reviewed: Yes Reason For Visit: PNEUMOTHORAX AFTER BIOPSY Current Active Problems Constipation (Acute) Diabetes mellitus type 2 in nonobese (Acute) Lung cancer (Acute) Pneumothorax after biopsy (Acute) Hospital Course: 85 yo female with PMH of left lung cancer, was admitted for progressively increasing pneumothorax after lung biopsy. Patient had chest tube and pigtail catheter inserted to seal the pneumothorax. The catheter was removed yesterday and patient had a normal CXR after the removal of the catheter. Following the removal of the chest tube the patient was monitored for 24 hours without events.. She will be discharged today and will follow up with me and her Oncologist. The patient will continue all her previous medications. Condition: Fair - Instructions Referrals: Lena Calles MD [Primary Care Provider] - - Home Medications Comprehensive Discharge Medication List: Ambulatory Orders Alprazolam [Xanax] 0.5 mg PO DAILY PRN 06/12/17 Aripiprazole 7 mg PO DAILY 06/12/17 Glipizide/Metformin HCl [Glipizide-Metformin 5-500 mg] 1 each PO BID 06/12/17 Irbesartan 75 mg PO DAILY 06/12/17 Lamotrigine [Lamictal] 100 mg PO DAILY 06/12/17 Levothyroxine [Synthroid -] 50 mcg PO DAILY 06/12/17 Sertraline HCl [Zoloft] 100 mg PO DAILY 06/12/17 Simvastatin 20 mg PO HS 06/12/17 Insulin Glargine,Hum.rec.anlog [Lantus] 28 unit SQ DAILY 11/30/17 Insulin Lispro [Humalog Nicholas Kwikpen] 100 unit SQ PRN 11/30/17 Liraglutide [Victoza -] 1.2 mg SQ DAILY@0700 11/30/17 Famotidine [Pepcid] 40 mg PO DAILY 06/08/20 ERLOTINIB HCl [Tarceva (Nf) -] 25 mg PO TID 06/14/20 Potassium Chloride 10 meq PO DAILY 06/14/20
== END 2020-06-19 18:33 | disposition home or self-care (01) | DRG 200 ==
LOC: JER 10:29 → JERBED 12:11 → J8W 16:09
PROVIDERS: ADMIT Internal Medicine; ATTEND Internal Medicine
PROC: 0W9B30Z Drainage of Left Pleural Cavity with Drainage Device, Percutaneous Approach (ICD-10-PCS; principal; 2020-06-14)
DX: J95.811 Postprocedural pneumothorax (principal); F31.89 Other bipolar disorder; J98.11 Atelectasis; C34.90 Malignant neoplasm of unspecified part of unspecified bronchus or lung; C79.70 Secondary malignant neoplasm of unspecified adrenal gland; I10 Essential (primary) hypertension; E78.5 Hyperlipidemia, unspecified; E03.9 Hypothyroidism, unspecified; K21.9 Gastro-esophageal reflux disease without esophagitis; E11.9 Type 2 diabetes mellitus without complications; K59.00 Constipation, unspecified; F03.90 Unspecified dementia, unspecified severity, without behavioral disturbance, psychotic disturbance, mood disturbance, and anxiety; E66.9 Obesity, unspecified; Z68.34 Body mass index [BMI] 34.0-34.9, adult; Y83.8 Other surgical procedures as the cause of abnormal reaction of the patient, or of later complication, without mention of misadventure at the time of the procedure
CPT/HCPCS: 32557; 36415; 71045-TC-FY; 76000-TC-FY; 80053; 82962; 85025; 93005; 93010; 99285-25; C1729; U0003

== ENCOUNTER 2021-01-01 06:36 | Day surgery (SDC) | payer BC ==
[2021-01-01] MEDS ORDERED: ACETAMINOPHEN 325 MG TABLET (FP) PO ONE (10:00)
[2021-01-01] MEDS ORDERED: DIPHENHYDRAMINE 25 MG in SODIUM CHLORIDE 50 ML IVPB ONE (10:00)
[2021-01-01] MEDS ORDERED: SODIUM CHLORIDE IVPB ONE (10:30)
[2021-01-01] MEDS ORDERED: BEVACIZUMAB AWWB IVPB ONE (10:30)
[2021-01-01 11:10] LABS: BASO % 0.5 % (0-2.0); EOS % 1.9 % (0-4.5); HEMATOCRIT 37.1 % (32.4-45.2); HEMOGLOBIN 11.8 GM/dL (10.7-15.3); LYMPH % 23.7 % (8-40); MCH 27.8 pg (25.7-33.7); MCHC 31.9 g/dl (32.0-36.0); MEAN CELL VOLUME 87.1 fl (80-96); MEAN PLT VOLUME 8.3 fl (7.5-11.1); MONO % 5.6 % (3.8-10.2); NEUT % 68.3 % (42.8-82.8); PLATELET COUNT 476 K/MM3 (134-434); RBC 4.25 M/mm3 (3.60-5.2); RDW 14.4 % (11.6-15.6); WHITE BLOOD COUNT 12.6 K/mm3 (4.0-10.0)
[2021-01-01 13:13] LABS: POTASSIUM 4.3 mmol/L (3.5-5.1)
[2021-01-01 13:17] LABS: CALCIUM 9.8 mg/dL (8.5-10.1)
[2021-01-01 13:18] LABS: ALBUMIN 4.1 g/dl (3.4-5.0); BLOOD UREA NITROGEN 50.8 mg/dL (7-18); MAGNESIUM 1.8 mg/dL (1.8-2.4)
[2021-01-01 13:20] LABS: BILIRUBIN,DIRECT 0.1 mg/dL (0.0-0.2); CREATININE 2.1 mg/dL (0.55-1.3)
[2021-01-01 13:22] LABS: BILIRUBIN,TOTAL 0.6 mg/dL (0.2-1); TOT PROT 8.3 g/dl (6.4-8.2)
[2021-01-01] MEDS ORDERED: SODIUM CHLORIDE 0.45% 500 ML IV SCH (13:30)
[2021-01-01 15:45] LABS: POTASSIUM 4.1 mmol/L (3.5-5.1)
[2021-01-01 15:47] LABS: BLOOD UREA NITROGEN 50.4 mg/dL (7-18)
[2021-01-01 15:50] LABS: CREATININE 1.9 mg/dL (0.55-1.3)
[2021-01-01 16:06] VITALS: TEMP 98.4
[2021-01-01 17:38] VITALS: BP 133/60; PULSE 77
== END 2021-01-01 17:43 | disposition home or self-care (01) ==
LOC: JONCCHEMO 06:36
PROVIDERS: ATTEND Internal Medicine Hematology & Oncology
DX: Z51.11 Encounter for antineoplastic chemotherapy (principal); C34.92 Malignant neoplasm of unspecified part of left bronchus or lung; C79.70 Secondary malignant neoplasm of unspecified adrenal gland; E11.9 Type 2 diabetes mellitus without complications; I10 Essential (primary) hypertension; E03.9 Hypothyroidism, unspecified
CPT/HCPCS: 36415; 80048; 80076; 82378; 83735; 84156; 85025; 86704; 86707; 86803; 87340; 96361; 96375; 96413; Q5107

== ENCOUNTER 2021-01-22 07:07 | Day surgery (SDC) | payer BC, OTHER ==
[~2021-01-22 07:07] MED LIST: SODIUM CHLORIDE 0.45% 250 ML IV SCH
[2021-01-22] MEDS ORDERED: SODIUM CHLORIDE 0.45% 250 ML IV ONE ×2 (09:00→10:30)
[2021-01-22] MEDS ORDERED: ACETAMINOPHEN 325 MG TABLET (FP) PO ONE (09:30)
[2021-01-22] MEDS ORDERED: DIPHENHYDRAMINE 25 MG in SODIUM CHLORIDE 50 ML IVPB ONE (09:30)
[2021-01-22] MEDS ORDERED: BEVACIZUMAB AWWB IVPB ONE (10:00)
[2021-01-22] MEDS ORDERED: SODIUM CHLORIDE IVPB ONE (10:00)
[2021-01-22 10:20] LABS: BASO % 0.8 % (0-2.0); EOS % 7.8 % (0-4.5); HEMATOCRIT 34.6 % (32.4-45.2); HEMOGLOBIN 11.4 GM/dL (10.7-15.3); LYMPH % 21.6 % (8-40); MCH 28.4 pg (25.7-33.7); MCHC 32.8 g/dl (32.0-36.0); MEAN CELL VOLUME 86.4 fl (80-96); MEAN PLT VOLUME 8.2 fl (7.5-11.1); MONO % 7.7 % (3.8-10.2); NEUT % 62.1 % (42.8-82.8); PLATELET COUNT 399 K/MM3 (134-434); RDW 14.3 % (11.6-15.6); WHITE BLOOD COUNT 8.1 K/mm3 (4.0-10.0)
[2021-01-22 10:27] LABS: URINE APPEARANCE CLEAR; URINE BILIRUBIN NEGATIVE (NEGATIVE); URINE COLOR YELLOW; URINE GLUCOSE (UA) NEGATIVE (NEGATIVE); URINE KETONE NEGATIVE (NEGATIVE); URINE LEUK ESTERASE NEGATIVE (NEGATIVE); URINE NITRITE NEGATIVE (NEGATIVE); URINE PROTEIN NEGATIVE (NEGATIVE); URINE UROBILINOGEN 0.2 mg/dL (0.2-1.0)
[2021-01-22 10:50] LABS: ALBUMIN 3.7 g/dl (3.4-5.0); CALCIUM 9.4 mg/dL (8.5-10.1)
[2021-01-22 10:51] LABS: BLOOD UREA NITROGEN 42.8 mg/dL (7-18)
[2021-01-22 10:53] LABS: BILIRUBIN,DIRECT 0.1 mg/dL (0.0-0.2)
[2021-01-22 10:55] LABS: BILIRUBIN,TOTAL 0.4 mg/dL (0.2-1); TOT PROT 7.6 g/dl (6.4-8.2)
[2021-01-22 12:20] VITALS: TEMP 98.6
[2021-01-22 15:10] VITALS: BP 110/66; PULSE 77
== END 2021-01-22 13:40 | disposition home or self-care (01) ==
LOC: JONCCHEMO 07:07
PROVIDERS: ATTEND Internal Medicine Hematology & Oncology
DX: Z51.11 Encounter for antineoplastic chemotherapy (principal); C34.92 Malignant neoplasm of unspecified part of left bronchus or lung; C79.70 Secondary malignant neoplasm of unspecified adrenal gland; E11.9 Type 2 diabetes mellitus without complications
CPT/HCPCS: 36415; 80048; 80076; 81003; 83735; 84156; 85025; 87086; 96361; 96375; 96413; Q5107

== ENCOUNTER 2021-02-12 07:00 | Day surgery (SDC) | payer BC, OTHER ==
[2021-02-12] MEDS ORDERED: SODIUM CHLORIDE 0.45% 250 ML IVPB ONE ×2 (09:00→11:00)
[2021-02-12] MEDS ORDERED: DIPHENHYDRAMINE 25 MG in SODIUM CHLORIDE 50 ML IVPB ONE (10:00)
[2021-02-12] MEDS ORDERED: ACETAMINOPHEN 325 MG TABLET (FP) PO ONE (10:00)
[2021-02-12 10:27] LABS: BASO % 0.9 % (0-2.0); EOS % 3.7 % (0-4.5); HEMOGLOBIN 10.6 GM/dL (10.7-15.3); LYMPH % 22.4 % (8-40); MCH 28.6 pg (25.7-33.7); MCHC 33.3 g/dl (32.0-36.0); MEAN CELL VOLUME 86.1 fl (80-96); MEAN PLT VOLUME 7.3 fl (7.5-11.1); PLATELET COUNT 433 K/MM3 (134-434); RBC 3.72 M/mm3 (3.60-5.2); RDW 14.4 % (11.6-15.6); WHITE BLOOD COUNT 8.9 K/mm3 (4.0-10.0)
[2021-02-12] MEDS ORDERED: SODIUM CHLORIDE IVPB ONE (10:30)
[2021-02-12] MEDS ORDERED: BEVACIZUMAB AWWB IVPB ONE (10:30)
[2021-02-12 10:47] LABS: ALBUMIN 3.6 g/dl (3.4-5.0)
[2021-02-12 10:48] LABS: CALCIUM 9.1 mg/dL (8.5-10.1)
[2021-02-12 10:51] LABS: BILIRUBIN,DIRECT 0.1 mg/dL (0.0-0.2)
[2021-02-12 10:52] LABS: CREATININE 1.3 mg/dL (0.55-1.3)
[2021-02-12 10:53] LABS: BILIRUBIN,TOTAL 0.3 mg/dL (0.2-1); TOT PROT 7.6 g/dl (6.4-8.2)
[2021-02-12 16:15] VITALS: TEMP 98.6
[2021-02-12 16:21] VITALS: BP 162/78; PULSE 78
== END 2021-02-12 15:30 | disposition home or self-care (01) ==
LOC: JONCCHEMO 07:00
PROVIDERS: ATTEND Internal Medicine Hematology & Oncology
DX: Z51.11 Encounter for antineoplastic chemotherapy (principal); C34.92 Malignant neoplasm of unspecified part of left bronchus or lung; C79.70 Secondary malignant neoplasm of unspecified adrenal gland; E11.9 Type 2 diabetes mellitus without complications
CPT/HCPCS: 36415; 80048; 80076; 83735; 84156; 85025; 87086; 87186; 96361; 96375; 96413; Q5107

== ENCOUNTER 2021-04-11 13:20 | Inpatient (IN) | payer BC, OTHER ==
[2021-04-11 14:40] LABS: BASO % 0.6 % (0-2.0); HEMOGLOBIN 11.1 GM/dL (10.7-15.3); LYMPH % 23.1 % (8-40); MCH 26.4 pg (25.7-33.7); MCHC 31.7 g/dl (32.0-36.0); MEAN CELL VOLUME 83.4 fl (80-96); MEAN PLT VOLUME 8.2 fl (7.5-11.1); MONO % 6.5 % (3.8-10.2); NEUT % 67.8 % (42.8-82.8); PLATELET COUNT 266 10^3/uL (134-434); RBC 4.19 M/mm3 (3.60-5.2); RDW 14.6 % (11.6-15.6); WHITE BLOOD COUNT 9.4 K/mm3 (4.0-10.0)
[2021-04-11 14:43] LABS: INR 1.07 (0.83-1.09); PROTHROMBIN TIME (PATIENT) 12.9 SEC (9.7-13.0)
[2021-04-11 14:46] LABS: ACTIVATED PTT 26.5 SECONDS (25.2-36.5)
[2021-04-11] MEDS ORDERED: ALTEPLASE 100MG 100 MG ONE (14:47)
[2021-04-11] MEDS ORDERED: ALTEPLASE BOLUS IVPUSH ONE (14:47)
[2021-04-11] MEDS ORDERED: ALTEPLASE 100 MG VIAL IVPB ONE (14:47)
[2021-04-11 15:02] LABS: CHLORIDE 106 mmol/L (98-107); SODIUM 137 mmol/L (136-145)
[2021-04-11 15:05] LABS: ALBUMIN 3.6 g/dl (3.4-5.0); CALCIUM 9.3 mg/dL (8.5-10.1)
[2021-04-11 15:06] LABS: ANION GAP 8 MMOL/L (8-16); BLOOD UREA NITROGEN 28.3 mg/dL (7-18); CO2 23 mmol/L (21-32); GLUCOSE,RANDOM 109 mg/dL (74-106)
[2021-04-11 15:08] LABS: SGOT/AST 11 U/L (15-37); SGPT/ALT 16 U/L (13-61)
[2021-04-11 15:09] LABS: CHOLESTEROL 231 mg/dL (50-200); CREATININE 1.8 mg/dL (0.55-1.3); TRIGLYCERIDES 145 mg/dL (0-150)
[2021-04-11 15:10] LABS: BILIRUBIN,TOTAL 0.2 mg/dL (0.2-1); LDL CHOLESTEROL (ONLY SJRH) 140 mg/dL (5-100); TOT PROT 7.5 g/dl (6.4-8.2)
[2021-04-11 15:11] LABS: ALK PHOS 76 U/L (45-117); HDL CHOLESTEROL 63 mg/dL (40-60)
[2021-04-11] MEDS ORDERED: ATORVASTATIN CA 80 MG TABLET (FP) PO ONE ×2 (16:13→21:05)
[2021-04-11] MEDS ORDERED: SODIUM CHLORIDE 1,000 ML IV SCH (16:15)
[2021-04-11 18:07] LABS: EPI CELLS >36 /uL (0-25.1); HYALINE CASTS 16 /uL (0-3.1); URINE APPEARANCE CLEAR; URINE BACTERIA 277 /uL (0-1359); URINE BILIRUBIN NEGATIVE (NEGATIVE); URINE COLOR YELLOW; URINE GLUCOSE (UA) NEGATIVE (NEGATIVE); URINE KETONE NEGATIVE (NEGATIVE); URINE LEUK ESTERASE NEGATIVE (NEGATIVE); URINE NITRITE NEGATIVE (NEGATIVE); URINE PROTEIN 2+ (NEGATIVE); URINE RBC 18 /uL (0-23.9); URINE UROBILINOGEN 0.2 mg/dL (0.2-1.0)
[2021-04-11 18:45] LABS: URINE WBC 95.4 /uL (0-25.8)
[2021-04-11] MEDS ORDERED: ATORVASTATIN CA 80 MG TABLET (FP) PO SCH (22:00)
[2021-04-11] MEDS ORDERED: VALSARTAN 40 MG TABLET PO SCH (22:15)
[2021-04-11] MEDS: DEXTROSE 5%-NORMAL SALINE 1,000 ML IV SCH (22:30)
[2021-04-11] MEDS: INSULIN SLIDING SCALE (NOVOLOG) 1 VIAL SQ SCH (22:39)
[2021-04-12] MEDS: INSULIN SLIDING SCALE (NOVOLOG) 1 VIAL SQ SCH ×4 (06:32→22:37)
[2021-04-12] MEDS ORDERED: VALSARTAN 40 MG TABLET PO ONE (06:34)
[2021-04-12 07:00] LABS: HEMATOCRIT 32.5 % (32.4-45.2); HEMOGLOBIN 10.3 GM/dL (10.7-15.3); MCH 26.5 pg (25.7-33.7); MEAN CELL VOLUME 83.3 fl (80-96); RBC 3.91 M/mm3 (3.60-5.2); WHITE BLOOD COUNT 10.7 K/mm3 (4.0-10.0)
[2021-04-12 07:01] LABS: BASO % 0.5 % (0-2.0); EOS % 2.2 % (0-4.5); LYMPH % 20.9 % (8-40); MCHC 31.8 g/dl (32.0-36.0); MEAN PLT VOLUME 8.4 fl (7.5-11.1); NEUT % 70.4 % (42.8-82.8); PLATELET COUNT 241 10^3/uL (134-434); RDW 14.3 % (11.6-15.6)
[2021-04-12 07:22] LABS: CALCIUM 8.8 mg/dL (8.5-10.1)
[2021-04-12 07:23] LABS: ALBUMIN 3.3 g/dl (3.4-5.0); BILIRUBIN,TOTAL 0.3 mg/dL (0.2-1)
[2021-04-12 07:25] LABS: CREATININE 1.3 mg/dL (0.55-1.3)
[2021-04-12] MEDS ORDERED: ONDANSETRON 4 MG/2 ML VIAL IVPUSH ONE (09:00)
[2021-04-12] MEDS ORDERED: ONDANSETRON 4 MG/2 ML VIAL IVPB PRN (09:16)
[2021-04-12] MEDS: PANTOPRAZOLE SODIUM 40 MG VIAL IVPUSH SCH (09:27)
[2021-04-12] MEDS ORDERED: ASPIRIN 81 MG CHEWABLE TABLETS PO SCH (10:00)
[2021-04-12] MEDS ORDERED: PANTOPRAZOLE 40 MG TABLET PO SCH (10:00)
[2021-04-12] MEDS ORDERED: ATORVASTATIN CA 80 MG TABLET (FP) PO SCH (10:00)
[2021-04-12] MEDS: NYSTATIN 100,000 UNIT/GM TOPICAL CREAM 15 GM TUBE TP SCH ×2 (10:12→22:07)
[2021-04-12] MEDS ORDERED: amLODIPine BESYLATE 5 MG TABLET (FP) PO ONE (17:41)
[2021-04-12] MEDS: ASPIRIN 81 MG CHEWABLE TABLETS PO SCH (18:02)
[2021-04-12] MEDS: DEXTROSE 5%-NORMAL SALINE 1,000 ML IV SCH (21:15)
[2021-04-12] MEDS: ATORVASTATIN CA 80 MG TABLET (FP) PO SCH (22:06)
[2021-04-12] MEDS ORDERED: MELATONIN 5 MG TABLETS PO ONE (23:36)
[2021-04-12] MEDS ORDERED: LORazepam 2 MG/ML SDV VIAL IVPUSH ONE (23:44)
[2021-04-13] MEDS: INSULIN SLIDING SCALE (NOVOLOG) 1 VIAL SQ SCH ×4 (06:50→21:46)
[2021-04-13] MEDS ORDERED: amLODIPine BESYLATE 2.5 MG TABLET (FP) PO ONE (07:17)
[2021-04-13 07:31] LABS: HEMATOCRIT 30.7 % (32.4-45.2); HEMOGLOBIN 9.9 GM/dL (10.7-15.3); MCH 26.7 pg (25.7-33.7); MCHC 32.3 g/dl (32.0-36.0); MEAN CELL VOLUME 82.7 fl (80-96); MEAN PLT VOLUME 8.3 fl (7.5-11.1); PLATELET COUNT 201 10^3/uL (134-434); RBC 3.71 M/mm3 (3.60-5.2); RDW 14.3 % (11.6-15.6); WHITE BLOOD COUNT 8.6 K/mm3 (4.0-10.0)
[2021-04-13 07:44] LABS: CALCIUM 8.5 mg/dL (8.5-10.1)
[2021-04-13 07:45] LABS: BLOOD UREA NITROGEN 10.1 mg/dL (7-18); MAGNESIUM 1.6 mg/dL (1.8-2.4)
[2021-04-13 07:48] LABS: PHOSPHOROUS 2.7 mg/dL (2.5-4.9)
[2021-04-13] MEDS ORDERED: VALSARTAN 40 MG TABLET PO SCH (10:00)
[2021-04-13] MEDS ORDERED: HALOPERIDOL LACTATE 5 MG/ML ONE (10:04)
[2021-04-13] MEDS ORDERED: HALOPERIDOL LACTATE 5 MG/ML IV ONE (10:09)
[2021-04-13] MEDS: NYSTATIN 100,000 UNIT/GM TOPICAL CREAM 15 GM TUBE TP SCH ×2 (10:30→21:41)
[2021-04-13] MEDS: PANTOPRAZOLE SODIUM 40 MG VIAL IVPUSH SCH (10:30)
[2021-04-13] MEDS: DEXTROSE 5%-NORMAL SALINE 1,000 ML IV SCH ×2 (11:00→21:41)
[2021-04-13] MEDS: ASPIRIN 81 MG CHEWABLE TABLETS PO SCH ×2 (14:05→14:35)
[2021-04-13] MEDS: VALSARTAN 80 MG TABLET PO SCH ×2 (14:05→14:36)
[2021-04-13] MEDS ORDERED: LORazepam 2 MG TABLET PO PRN (14:45)
[2021-04-13 16:14] VITALS: BMI 33.1
[2021-04-13] MEDS ORDERED: MELATONIN 5 MG TABLETS PO PRN (16:17)
[2021-04-13] MEDS ORDERED: ARIPiprazole 2 MG TABLET PO SCH (16:30)
[2021-04-13] MEDS: lamoTRIgine 100 MG TABLET PO SCH (16:48)
[2021-04-13] MEDS: SERTRALINE HCL 50 MG TABLET (FP) PO SCH (16:58)
[2021-04-13] MEDS: ATORVASTATIN CA 80 MG TABLET (FP) PO SCH (21:40)
[2021-04-13] MEDS: LORazepam 2 MG/ML SDV VIAL IVPUSH SCH (21:40)
[2021-04-14] MEDS: INSULIN SLIDING SCALE (NOVOLOG) 1 VIAL SQ SCH ×4 (06:25→20:59)
[2021-04-14] MEDS ORDERED: MAGNESIUM SULF 50% (8.12 MEQ/2 ML-1 GM VIAL) ONE (07:12)
[2021-04-14] MEDS ORDERED: MAGNESIUM SULFATE IN WATER 2 GM/50 ML IVPB IVPB ONE (07:18)
[2021-04-14 07:28] LABS: HEMATOCRIT 30.8 % (32.4-45.2); HEMOGLOBIN 10.1 GM/dL (10.7-15.3); MCHC 32.9 g/dl (32.0-36.0); MEAN CELL VOLUME 82.2 fl (80-96); MEAN PLT VOLUME 8.8 fl (7.5-11.1); PLATELET COUNT 223 10^3/uL (134-434); RBC 3.75 M/mm3 (3.60-5.2); RDW 14.3 % (11.6-15.6); WHITE BLOOD COUNT 10.1 K/mm3 (4.0-10.0)
[2021-04-14] MEDS ORDERED: MAGNESIUM HYDROX 2400MG/30ML ORAL SUSPENSION 30 ML CUP PO PRN (07:41)
[2021-04-14] MEDS ORDERED: DEXTROSE 5%-NORMAL SALINE 1,000 ML IV SCH (07:41)
[2021-04-14 08:11] LABS: BLOOD UREA NITROGEN 8.4 mg/dL (7-18)
[2021-04-14 08:13] LABS: CALCIUM 8.8 mg/dL (8.5-10.1)
[2021-04-14 08:14] LABS: CREATININE 0.9 mg/dL (0.55-1.3); MAGNESIUM 1.5 mg/dL (1.8-2.4)
[2021-04-14] MEDS: SERTRALINE HCL 50 MG TABLET (FP) PO SCH (09:00)
[2021-04-14] MEDS ORDERED: PT OWN MED DRAWER 7, Y5N ONE (09:02)
[2021-04-14] MEDS: PANTOPRAZOLE SODIUM 40 MG VIAL IVPUSH SCH (09:03)
[2021-04-14] MEDS: ASPIRIN 81 MG CHEWABLE TABLETS PO SCH (09:05)
[2021-04-14] MEDS: VALSARTAN 80 MG TABLET PO SCH (09:05)
[2021-04-14] MEDS: NYSTATIN 100,000 UNIT/GM TOPICAL CREAM 15 GM TUBE TP SCH ×2 (09:05→21:02)
[2021-04-14] MEDS: lamoTRIgine 100 MG TABLET PO SCH (09:06)
[2021-04-14] MEDS: ARIPIPRAZOLE PO SCH (09:07)
[2021-04-14] MEDS: LORazepam 2 MG/ML SDV VIAL IVPUSH SCH ×2 (09:09→21:01)
[2021-04-14] MEDS ORDERED: ARIPiprazole 5 MG TABLET PO SCH ×2 (10:00)
[2021-04-14] MEDS: ATORVASTATIN CA 80 MG TABLET (FP) PO SCH (21:01)
[2021-04-15] MEDS: INSULIN SLIDING SCALE (NOVOLOG) 1 VIAL SQ SCH ×4 (06:55→21:13)
[2021-04-15] MEDS ORDERED: PT OWN MED DRAWER 7, Y5N ONE ×2 (09:18→19:29)
[2021-04-15] MEDS: LORazepam 2 MG/ML SDV VIAL IVPUSH SCH ×2 (09:30→21:10)
[2021-04-15] MEDS: lamoTRIgine 100 MG TABLET PO SCH (09:31)
[2021-04-15] MEDS: PANTOPRAZOLE SODIUM 40 MG VIAL IVPUSH SCH (09:31)
[2021-04-15] MEDS: ASPIRIN 81 MG CHEWABLE TABLETS PO SCH (09:31)
[2021-04-15] MEDS: SERTRALINE HCL 50 MG TABLET (FP) PO SCH (09:31)
[2021-04-15] MEDS: ARIPIPRAZOLE PO SCH (09:31)
[2021-04-15] MEDS: NYSTATIN 100,000 UNIT/GM TOPICAL CREAM 15 GM TUBE TP SCH ×2 (09:32→21:13)
[2021-04-15 10:05] LABS: CALCIUM 8.6 mg/dL (8.5-10.1)
[2021-04-15 10:06] LABS: ALBUMIN 2.9 g/dl (3.4-5.0); BLOOD UREA NITROGEN 16.2 mg/dL (7-18); MAGNESIUM 2.1 mg/dL (1.8-2.4)
[2021-04-15 10:09] LABS: CREATININE 1.2 mg/dL (0.55-1.3)
[2021-04-15 10:11] LABS: BILIRUBIN,TOTAL 0.5 mg/dL (0.2-1); TOT PROT 6.2 g/dl (6.4-8.2)
[2021-04-15] MEDS: VALSARTAN 80 MG TABLET PO SCH (12:34)
[2021-04-15] MEDS: ATORVASTATIN CA 80 MG TABLET (FP) PO SCH (21:09)
[2021-04-16] MEDS: INSULIN SLIDING SCALE (NOVOLOG) 1 VIAL SQ SCH ×4 (06:10→21:18)
[2021-04-16] MEDS ORDERED: LORazepam 0.5 MG TABLET PO PRN (09:53)
[2021-04-16] MEDS ORDERED: PT OWN MED DRAWER 7, Y5N ONE (10:06)
[2021-04-16] MEDS: VALSARTAN 80 MG TABLET PO SCH (10:09)
[2021-04-16] MEDS: ASPIRIN 81 MG CHEWABLE TABLETS PO SCH (10:09)
[2021-04-16] MEDS: SERTRALINE HCL 50 MG TABLET (FP) PO SCH (10:09)
[2021-04-16] MEDS: ARIPIPRAZOLE PO SCH (10:09)
[2021-04-16] MEDS: PANTOPRAZOLE SODIUM 40 MG VIAL IVPUSH SCH (10:09)
[2021-04-16] MEDS: lamoTRIgine 100 MG TABLET PO SCH (10:09)
[2021-04-16] MEDS: NYSTATIN 100,000 UNIT/GM TOPICAL CREAM 15 GM TUBE TP SCH ×2 (10:10→21:12)
[2021-04-16] MEDS: ATORVASTATIN CA 80 MG TABLET (FP) PO SCH (21:12)
[2021-04-17] MEDS: INSULIN SLIDING SCALE (NOVOLOG) 1 VIAL SQ SCH ×2 (06:05→12:40)
[2021-04-17 06:52] VITALS: BP 153/69; PULSE 71; TEMP 98.8
[2021-04-17] MEDS ORDERED: PT OWN MED DRAWER 7, Y5N ONE (09:57)
[2021-04-17] MEDS: SERTRALINE HCL 50 MG TABLET (FP) PO SCH (10:00)
[2021-04-17] MEDS: PANTOPRAZOLE SODIUM 40 MG VIAL IVPUSH SCH (10:00)
[2021-04-17] MEDS: VALSARTAN 80 MG TABLET PO SCH (10:01)
[2021-04-17] MEDS: ARIPIPRAZOLE PO SCH (10:01)
[2021-04-17] MEDS: ASPIRIN 81 MG CHEWABLE TABLETS PO SCH (10:01)
[2021-04-17] MEDS: lamoTRIgine 100 MG TABLET PO SCH (10:01)
[2021-04-17] MEDS: NYSTATIN 100,000 UNIT/GM TOPICAL CREAM 15 GM TUBE TP SCH (10:02)
[2021-04-17] MEDS ORDERED: amLODIPine BESYLATE 2.5 MG TABLET (FP) PO SCH (10:45)
[2021-04-17] MEDS ORDERED: metFORMIN HCL 500 MG TABLET (FP) PO SCH (16:30)
== END 2021-04-17 13:00 | disposition home health service (06) | DRG 62 ==
LOC: JER 13:20 → JERBED 15:46 → JICU 17:55 → J8W 04-14 15:54
PROVIDERS: ADMIT Internal Medicine; ATTEND Internal Medicine
DX: I63.9 Cerebral infarction, unspecified (principal); C34.90 Malignant neoplasm of unspecified part of unspecified bronchus or lung; C79.70 Secondary malignant neoplasm of unspecified adrenal gland; N17.9 Acute kidney failure, unspecified; E78.5 Hyperlipidemia, unspecified; E03.9 Hypothyroidism, unspecified; K21.9 Gastro-esophageal reflux disease without esophagitis; E87.5 Hyperkalemia; Z79.4 Long term (current) use of insulin; I35.0 Nonrheumatic aortic (valve) stenosis; I44.0 Atrioventricular block, first degree; F41.9 Anxiety disorder, unspecified; I12.9 Hypertensive chronic kidney disease with stage 1 through stage 4 chronic kidney disease, or unspecified chronic kidney disease; E11.22 Type 2 diabetes mellitus with diabetic chronic kidney disease; N18.9 Chronic kidney disease, unspecified
CPT/HCPCS: 36415; 70450-TC; 70496-TC; 70498-TC; 70551-TC; 80048; 80053; 80061; 81003; 82550; 82962; 83721; 83735; 84100; 84484; 85025; 85027; 85610; 85730; 86850; 86900; 86901; 93005; 93010; 93306-TC; 97116-GP; 97161-GP; 97163-GP; 99285-25; C9803; J2997; U0003; U0005

== ENCOUNTER 2021-10-19 11:23 | Inpatient (IN) | payer BC, OTHER ==
[2021-10-19] MEDS ORDERED: SODIUM CHLORIDE 0.9% 500 ML INFUS.BAG IV ONE (13:39)
[2021-10-19 14:36] LABS: BASO % 0.1 % (0-2.0); EOS % 0.2 % (0-4.5); HEMATOCRIT 33.2 % (32.4-45.2); HEMOGLOBIN 10.5 GM/dL (10.7-15.3); LYMPH % 13.7 % (8-40); MCH 26.6 pg (25.7-33.7); MCHC 31.7 g/dl (32.0-36.0); MEAN CELL VOLUME 83.9 fl (80-96); MEAN PLT VOLUME 7.9 fl (7.5-11.1); MONO % 9.7 % (3.8-10.2); NEUT % 76.3 % (42.8-82.8); PLATELET COUNT 303 10^3/uL (134-434); RBC 3.95 M/mm3 (3.60-5.2); RDW 14.1 % (11.6-15.6); WHITE BLOOD COUNT 6.9 K/mm3 (4.0-10.0)
[2021-10-19 15:10] LABS: CHLORIDE 100 mmol/L (98-107); SODIUM 130 mmol/L (136-145)
[2021-10-19 15:12] LABS: CALCIUM 9.2 mg/dL (8.5-10.1); GLUCOSE,RANDOM 269 mg/dL (74-106)
[2021-10-19 15:13] LABS: ANION GAP 12 MMOL/L (8-16); BLOOD UREA NITROGEN 38.7 mg/dL (7-18); CO2 19 mmol/L (21-32)
[2021-10-19 15:15] LABS: BILIRUBIN,DIRECT 0.3 mg/dL (0.0-0.2)
[2021-10-19 15:16] LABS: CREATININE 1.4 mg/dL (0.55-1.3); SGOT/AST 75 U/L (15-37); SGPT/ALT 38 U/L (13-61)
[2021-10-19 15:17] LABS: BILIRUBIN,TOTAL 0.6 mg/dL (0.2-1); LDH 319 U/L (84-246); TOT PROT 7.1 g/dl (6.4-8.2)
[2021-10-19 15:18] LABS: ALK PHOS 82 U/L (45-117)
[2021-10-19] MEDS ORDERED: ONDANSETRON 4 MG/2 ML VIAL IVPB PRN (16:26)
[2021-10-19 18:33] LABS: EPI CELLS 8 /uL (0-25.1); HYALINE CASTS 2 /uL (0-3.1); URINE APPEARANCE CLEAR; URINE BACTERIA 12 /uL (0-1359); URINE BILIRUBIN NEGATIVE (NEGATIVE); URINE COLOR YELLOW; URINE GLUCOSE (UA) NEGATIVE (NEGATIVE); URINE KETONE TRACE (NEGATIVE); URINE LEUK ESTERASE NEGATIVE (NEGATIVE); URINE NITRITE NEGATIVE (NEGATIVE); URINE PROTEIN 2+ (NEGATIVE); URINE RBC 17 /uL (0-23.9); URINE UROBILINOGEN 0.2 mg/dL (0.2-1.0); URINE WBC 17 /uL (0-25.8)
[2021-10-19] MEDS: INSULIN SLIDING SCALE (NOVOLOG) 1 VIAL SQ SCH ×2 (19:12→22:30)
[2021-10-19 21:09] VITALS: BMI 21.2
[2021-10-20] MEDS: LEVOTHYROXINE NA 50 MCG TABLET (FP) PO SCH (06:11)
[2021-10-20] MEDS: INSULIN SLIDING SCALE (NOVOLOG) 1 VIAL SQ SCH ×4 (06:12→21:15)
[2021-10-20] MEDS ORDERED: ARIPiprazole 2 MG TABLET PO SCH (10:00)
[2021-10-20] MEDS ORDERED: ARIPiprazole 5 MG TABLET PO SCH ×2 (10:00)
[2021-10-20] MEDS: amLODIPine BESYLATE 2.5 MG TABLET (FP) PO SCH (11:02)
[2021-10-20] MEDS: SERTRALINE HCL 50 MG TABLET (FP) PO SCH (11:02)
[2021-10-20] MEDS: ARIPIPRAZOLE 5 MG, ARIPIPRAZOLE 2 MG PO SCH (12:21)
[2021-10-20] MEDS: lamoTRIgine 100 MG TABLET PO SCH (12:21)
[2021-10-20 13:46] LABS: BASO % 0.1 % (0-2.0); EOS % 0.4 % (0-4.5); HEMOGLOBIN 10.4 GM/dL (10.7-15.3); MCH 27.5 pg (25.7-33.7); MCHC 33.5 g/dl (32.0-36.0); MEAN CELL VOLUME 82.1 fl (80-96); MONO % 6.8 % (3.8-10.2); NEUT % 78.7 % (42.8-82.8); PLATELET COUNT 307 10^3/uL (134-434); RBC 3.77 M/mm3 (3.60-5.2); RDW 14.6 % (11.6-15.6); WHITE BLOOD COUNT 8.6 K/mm3 (4.0-10.0)
[2021-10-20 13:55] LABS: CALCIUM 9.2 mg/dL (8.5-10.1)
[2021-10-20 13:56] LABS: ALBUMIN 2.9 g/dl (3.4-5.0)
[2021-10-20 14:00] LABS: BILIRUBIN,TOTAL 0.6 mg/dL (0.2-1); TOT PROT 6.8 g/dl (6.4-8.2)
[2021-10-21] MEDS: INSULIN SLIDING SCALE (NOVOLOG) 1 VIAL SQ SCH ×4 (06:17→22:10)
[2021-10-21] MEDS: LEVOTHYROXINE NA 50 MCG TABLET (FP) PO SCH (06:17)
[2021-10-21] MEDS: amLODIPine BESYLATE 2.5 MG TABLET (FP) PO SCH (09:58)
[2021-10-21] MEDS: SERTRALINE HCL 50 MG TABLET (FP) PO SCH (09:58)
[2021-10-21] MEDS: lamoTRIgine 100 MG TABLET PO SCH (09:59)
[2021-10-21] MEDS: ARIPIPRAZOLE 5 MG, ARIPIPRAZOLE 2 MG PO SCH (09:59)
[2021-10-21] MEDS: LACTOBACILLUS ACIDOPHILUS 1 TABLET PO SCH (22:06)
[2021-10-22] MEDS: LEVOTHYROXINE NA 50 MCG TABLET (FP) PO SCH (06:33)
[2021-10-22] MEDS: INSULIN SLIDING SCALE (NOVOLOG) 1 VIAL SQ SCH ×4 (06:36→21:29)
[2021-10-22 09:28] LABS: BLOOD UREA NITROGEN 23.1 mg/dL (7-18); CALCIUM 9.2 mg/dL (8.5-10.1)
[2021-10-22 09:30] LABS: ALBUMIN 2.8 g/dl (3.4-5.0)
[2021-10-22 09:33] LABS: CREATININE 0.9 mg/dL (0.55-1.3)
[2021-10-22 09:34] LABS: BILIRUBIN,TOTAL 0.7 mg/dL (0.2-1); TOT PROT 6.9 g/dl (6.4-8.2)
[2021-10-22] MEDS: SERTRALINE HCL 50 MG TABLET (FP) PO SCH (09:58)
[2021-10-22] MEDS: LACTOBACILLUS ACIDOPHILUS 1 TABLET PO SCH ×2 (09:59→21:36)
[2021-10-22] MEDS: ARIPIPRAZOLE 5 MG, ARIPIPRAZOLE 2 MG PO SCH (09:59)
[2021-10-22] MEDS: amLODIPine BESYLATE 2.5 MG TABLET (FP) PO SCH (09:59)
[2021-10-22] MEDS: lamoTRIgine 100 MG TABLET PO SCH (09:59)
[2021-10-22] MEDS: OSIMERTINIB 80 MG PO SCH (10:16)
[2021-10-23] MEDS: INSULIN SLIDING SCALE (NOVOLOG) 1 VIAL SQ SCH ×2 (06:02→11:03)
[2021-10-23] MEDS: LEVOTHYROXINE NA 50 MCG TABLET (FP) PO SCH (06:03)
[2021-10-23] MEDS: OSIMERTINIB 80 MG PO SCH (10:57)
[2021-10-23] MEDS: LACTOBACILLUS ACIDOPHILUS 1 TABLET PO SCH (10:58)
[2021-10-23] MEDS: ARIPIPRAZOLE 5 MG, ARIPIPRAZOLE 2 MG PO SCH (10:58)
[2021-10-23] MEDS: SERTRALINE HCL 50 MG TABLET (FP) PO SCH (10:58)
[2021-10-23] MEDS: lamoTRIgine 100 MG TABLET PO SCH (10:58)
[2021-10-23] MEDS: amLODIPine BESYLATE 2.5 MG TABLET (FP) PO SCH (10:58)
[2021-10-23 11:10] VITALS: BP 149/82; PULSE 115; TEMP 98.2
== END 2021-10-23 13:45 | DRG 178 ==
LOC: JER 11:23 → JERBED 15:19 → J6S 20:26
PROVIDERS: ADMIT Internal Medicine; ATTEND Internal Medicine
DX: U07.1 COVID-19 (principal); C34.90 Malignant neoplasm of unspecified part of unspecified bronchus or lung; C79.70 Secondary malignant neoplasm of unspecified adrenal gland; N17.9 Acute kidney failure, unspecified; E87.1 Hypo-osmolality and hyponatremia; E78.5 Hyperlipidemia, unspecified; E03.9 Hypothyroidism, unspecified; K21.9 Gastro-esophageal reflux disease without esophagitis; F31.9 Bipolar disorder, unspecified; Z96.651 Presence of right artificial knee joint; I12.9 Hypertensive chronic kidney disease with stage 1 through stage 4 chronic kidney disease, or unspecified chronic kidney disease; E11.22 Type 2 diabetes mellitus with diabetic chronic kidney disease; N18.9 Chronic kidney disease, unspecified; E86.0 Dehydration; F03.90 Unspecified dementia, unspecified severity, without behavioral disturbance, psychotic disturbance, mood disturbance, and anxiety; F41.9 Anxiety disorder, unspecified; I69.920 Aphasia following unspecified cerebrovascular disease
CPT/HCPCS: 36415; 71045-TC-FY; 80053; 81003; 82248; 82436; 82550; 82553; 82728; 82962; 83605; 83615; 83930; 83935; 84133; 84300; 84484; 85025; 86140; 87086; 87804; 93005; 93010; 97116-GP; 99285-25; C9803; U0003; U0005